=== PATIENT | female | born 1930 | race Caucasian/White ===

== ENCOUNTER 2017-07-19 10:22 | Emergency (ER) | payer MEDICARE ==
[2017-07-19 10:48] VITALS: BP 123/63
--- NOTE | 2017-07-19 11:19 | UC ---
Throat Pain/Nasal [place]lesia HPI - HPI Summary HPI Summary: Patient presents with complaints of two week onset, nasal congestion, sinus pressure, and thick yellow nasal discharge. She notes that is now is beginning to go to her chest with cough, and mild shortness of breath with exertion. She denies chest pain, abdominal pain, fever, chills, nausea, vomiting or diarrhea. - History of Current Complaint Chief Complaint: UCRespiratory Stated Complaint: SINUS CONGESTION Time Seen by Provider: 07/19/17 11:05 Hx Obtained From: Patient Onset/Duration: Gradual Onset, Lasting Weeks Severity: Moderate Cough: Nonproductive Associated Signs & Symptoms: Positive: Sinus Discomfort, Nasal Discharge - Epiglottits Risk Factors Epiglottis Risk Factors: Negative - Allergies/Home Medications Allergies/Adverse Reactions: Allergies Allergy/AdvReac Type Severity Reaction Status Date / Time No Known Allergies Allergy Verified 07/19/17 10:48 Home Medications: Home Medications Cranberry (Vaccinium Macrocarp [Cranberry] 2,500 mg PO BID 07/19/17 [History Confirmed 07/19/17] Glimepiride 0.5 tab PO DAILY 07/19/17 [History Confirmed 07/19/17] Glucosamine-Chondroitin [Glucosamine & Chondroitin 500-400 mg] 596 mg PO DAILY 07/19/17 [History Confirmed 07/19/17] Ipratropium [place] (Nasal) [Ipratropium [place]] 1 spray BOTH NARES DAILY 07/19 [History Confirmed 07/19/17] Magnesium 1 tab PO DAILY 07/19/17 [History Confirmed 07/19/17] Ubiquinone [Ultra Coq10] 100 mg PO BID 07/19/17 [History Confirmed 07/19/17] PMH/Surg Hx/FS Hx/Imm Hx Previously Healthy: Yes Endocrine History: Diabetes - Surgical History Surgical History: Yes Surgery Procedure, Year, and Place: Tonsillectomy. 1960 Tubal Ligation, [facility]. 1978 Partial Hysterectomy, [facility]. 2005 & 2006 L4 L5 HEMILAMENOTOMY x 2, [facility]. 2009 LEFT LEG [place]SE [place]IN [place] [facility] [place] - Family History Known Family History: Positive: Cardiac Disease - Social History Occupation: Retired Lives: Alone Alcohol Use: Rare Substance Use Type: None Smoking Status (MU): Never Smoked Tobacco - Immunization History Most Recent Influenza Vaccination: 04/2017 Most Recent Pneumonia Vaccination: 2014 Review of Systems Constitutional: Negative Skin: Negative Eyes: Negative ENT: Nasal Discharge, Sinus Congestion, Sinus Pain/Tenderness Respiratory: Negative Cardiovascular: Negative Gastrointestinal: Negative Genitourinary: Negative Motor: Negative Neurovascular: Negative Musculoskeletal: Negative All Other Systems Reviewed And Are Negative: Yes Physical Exam Triage Information Reviewed: Yes Appearance: Well-Appearing Vital Signs: Initial Vital Signs Temp 97.3 F 07/19/17 10:42 Pulse 83 07/19/17 10:42 Resp 20 07/19/17 10:42 BP 123/63 07/19/17 10:42 Pulse Ox 100 07/19/17 10:42 Vital Signs Reviewed: Yes Eye Exam: Normal ENT: Positive: Nasal congestion, Nasal drainage, Sinus tenderness Dental Exam: Normal Neck exam: Normal Neck: Positive: 1 Respiratory: Positive: Normal breath sounds, No respiratory distress, No accessory muscle use Cardiovascular: Positive: RRR, No Murmur, Pulses Normal Abdominal Exam: Normal Musculoskeletal Exam: Normal Neurological Exam: Normal Skin Exam: Normal Throat Pain/Nasal Course/Dx - Course Course Of Treatment: Patient presents with sinusitis, normal VS, no repiratory distress. Treated with zpk. Told to follow up if symtpoms persisit. - Differential Dx/Diagnosis Differential Diagnosis/HQI/PQRI: Sinusitis Provider Diagnoses: sinusitis Discharge - Discharge Plan Condition: Stable Disposition: HOME Prescriptions: Azithromycin TAB* [Zithromax TAB (Z-DIANN) 250 mg #6 tabs] 250 mg PO DAILY #6 tab Patient Education Materials: Sinusitis (ED) Referrals: Bandar Mccarthy MD [Primary Care Provider] -
== END 2017-07-19 11:17 | disposition home or self-care (01) ==
LOC: UCEAST 10:22
DX: J32.9 Chronic sinusitis, unspecified (principal); E11.9 Type 2 diabetes mellitus without complications; Z79.84 Long term (current) use of oral hypoglycemic drugs
CPT/HCPCS: 99212; G0463

== ENCOUNTER 2019-02-09 13:57 | Emergency (ER) | payer MEDICARE ==
--- OUTSIDE RECORDS SUMMARY | 2019-02-09 14:04 | XMS REPORT | Continuity of Care Document ---
:1930 External Reference #:[id number] Author Name Matt Vann Care Team Providers Name Role Phone Bandar Mccarthy III, MD Primary Care Physician Unavailable Payers Date Identification Numbers Payment Provider Subscriber Effective: 1996 Policy Number: [id number] Medicare Jocelyn Preston PayID: [id number] [address] [place] [address] Effective: 2010 Policy Number: [id number] [facility] [place] [facility] [place] Jocelyn Preston PayID: [id number] [address] [place] [address] Problems Active Problems Provider Date Type 2 diabetes mellitus Jennyfer Dominique N.P. Onset: 05/11/2011 Osteochondropathy Bandar Mccarthy M.D. Onset: 07/17/2011 Neck pain Bandar Mccarthy M.D. Onset: 05/01/2012 Lumbar post-laminectomy syndrome Todd Hinojosa M.D. Onset: 01/13/2014 Cervical spondylosis without myelopathy Todd Hinojosa M.D. Onset: 2013 Lumbosacral spondylosis without myelopathy Todd Hinojosa M.D. Onset: 01/2015 Cervical spondylosis with myelopathy Todd Hinojosa M.D. Onset: 01/05/2015 Localized, primary osteoarthritis Elvira Rooney M.D. Onset: 06/13/2015 Disorder of bone density and structure, Bandar Mccarthy M.D. Onset: 2014 unspecified Carpal tunnel syndrome Todd Hinojosa M.D. Onset: 11/09/2015 Lumbar spondylosis Bandar Mccarthy M.D. Onset: 12/05/2015 Chronic rhinitis Tyrone Robert M.D. Onset: 09/15/2018 Sensorineural hearing loss Tyrone Robert M.D. Onset: 09/15/2018 Snapping thumb syndrome Luis Manuel Castro MD Onset: 09/19/2018 Family History Date Family Member(s) Observation Comments General Heart Disease General Hypertension General Cancer Paternal Grandmother Hypertension Maternal Grandfather Heart Disease Maternal Grandmother Cancer Social History Type Date Description Comments Sex Unknown Marital Status Lives With Alone Occupation Retired Tobacco Use Start: Unknown Never Smoked Cigarettes Tobacco Use Start: Unknown Never Smoked Cigars Tobacco Use Start: Unknown Never Smoked A Pipe Smoking Status Reviewed: 01/30/19 Never Smoked A Pipe Smokeless Tobacco Never Used Smokeless Tobacco ETOH Use Rarely consumes alcohol Tobacco Use Start: Unknown Patient has never smoked Exercise Type/Frequency Exercises sporadically Exercise Type/Frequency exercycle on occ. Allergies, Adverse Reactions, Alerts Description No Known Drug Allergies Medications Active Medications SIG Qnty Indications Ordering Date Provider Guaifenesin-Codein 15 milliliters at 474ml Bandar Mcgowan 11/24/2018 e bedtime and can use Edinson Mccarthy 100-10mg/5ML every 6 hours as Solution needed for cough Glimepiride 1 po daily 90tabs E11.9 Bandar Mcgowan 11/19/2018 2mg Edinson Mccarthy Tablets Albuterol Sulfate 2 puffs by mouth four J20.9 Bandar Mcgowan 11/19/2018 HFA times a day as needed Edinson Mccarthy 108(90Base) mcg/Act Aerosol Trulicity inject 1 dose 6ml E11.9 Bandar Mcgowan 01/22/2018 subcutaneously once Edinson Mccarthy 1.5mg/0.5ML weekly Solution Pen-Inject Gabriela Contour use one strip to 100units E11.9 Bandar Mcgowan 07/25/2016 Blood Glucose Test check glucose once Edinson Mccarthy Strips daily Type 2diabetes Strips Ov 05/30 Premarin 1 application pv 2 x 42.500gm V72.31 James Weeks, 01/04/2015 weekly 0.625mg/GM Cream Gabriela Microlet every day as needed 50units Bandar Mcgowan 05/15/2013 Lancets dx code 250.00 RICHARD Mccarthy M.D. Misc type II Vitamin B Complex 1 PO qd Bandar Mcgowan 01/08/2008 Edinson Mccarthy Capsules Vitamin C 2 by mouth every day Unknown 500mg Capsules Lutein 1 cap daily Unknown 20mg Capsules Zeaxanthin 800mcg once daily Unknown Pill Bilberry one daily Unknown 60mg Capsules Glucosamine MSM 2 tabs daily Unknown Complex Tablets Borage Oil 1 cap daily Unknown 1000mg Capsules Vadim Taurine 1 cap daily Unknown 1000mg Capsules Vitamin D3 1 by mouth three Unknown times weekly 5000Unit Capsules Collagen daily Unknown Hydrolysate Powder Magnesium 1 by mouth every day Unknown 400mg Tablets Pomegranate 2 daily Unknown 250mg Capsules Qunol 2 caps daily Unknown Coq10/Ubiquinol/Me ga 100mg Capsules Fish Oil Burp-Less po bid 60caps Unknown 1200mg Capsules Fluocinonide-E apply to affected Unknown area bid prn 0.05% Cream Clobetasol topical to raise 50g Unknown Propionate areas scalp qd prn 0.05% Solution Calcium + D 2 PO qd Unknown 600/500mg Tablets Ambien by mouth every night 30tabs Bandar Mcgowan 5mg at bedtime as needed Edinson Mccarthy Tablets Multi-Vitamin 1 PO qd Bob Diamond, Tablets History Medications Tramadol HCL 1-2 tablets by 30tabs Luis Manuel Castro, 12/04/2018 - 50mg mouth every 6 MD 01/29/2019 Tablets hours as needed pain Azithromycin 2 today then 1 po 6tabs Cameron Leonard 11/27/2018 - 250mg qd x4 d Edinson Yepez,FACP 01/29/2019 Tablets Robitussin ac 3 tsp q6h prn Bandar Mcgowan 11/24/2018 - cough.Take with a Edinson Mccarthy 11/24/2018 full glass of water. Proair HFA 2 puffs by mouth 1units J20.9 Bandar Mcgowan 11/19/2018 - four times a day Edinson Mccarthy 11/19/2018 108(90Base) mcg/Act as needed Aerosol Fluticasone 2 sprays in each 1units J31.0 Tyrone 09/15/2018 - Propionate nostril once daily Edinson Robert 11/19/2018 50mcg/Act Suspension Clotrimazole/Betamet apply 2 - 3 times 15gm N77.1 Nora Leigh, 2017 - hasone Dipropionate daily as needed N.P. 08/18/2018 1-0.05% Cream Trulicity inject 0.75mg once 12units E11.9 Bandar Mcgowan 06/06/2017 - a week Edinson Mccarthy 01/22/2018 0.75mg/0.5ML Solution Pen-Inject Glimepiride take 2 tablets 120tabs E11.9 Bandar Mcgowan 09/06/2016 - 1mg daily Edinson Mccarthy 11/19/2018 Tablets Pioglitazone HCL 1 by mouth every 90tabs Bandar Mcgowan 07/25/2016 - 30mg day Edinson Mccarthy 10/10/2017 Tablets Amoxicillin/Clavulan 1 by mouth twice a 10tabs J06.9 Bandar Mcgowan 07/19/2016 - ate Potassium day Edinson Mccarthy 07/25/2016 500-125mg Tablets Januvia 1 by mouth every 90tabs E11.9 Bandar Mcgowan 06/11/2016 - 100mg Tablets day Edinson Mccarthy 06/06/2017 Mobic No Longer Using 30tabs Jannette 03/21/2016 - 7.5mg Tablets Edinson Willard 09/06/2016 Ultracet 1-2 tabs by mouth 30tabs Jannette 11/24/2015 - 37.5-325mg every 4-6 hours as Edinson Willard 04/11/2016 Tablets needed pain Magnesium 1 by mouth every Bandar EColton 10/18/2015 - 400mg day Edinson Mccarthy 07/19/2016 Capsules Voltaren apply twice a day 1tube Anibal Noy, 06/23/2015 - 1% Gel as needed to M.D. 10/05/2015 affected area Naproxen 1 tablet with food 60tabs M17.11 Elvira Rooney, 06/13/2015 - 500mg by mouth twice a M.DColton 09/15/2018 Tablets day Alendronate Sodium 1 tablet once 12tabs Bandar Mcgowan 01/14/2015 - weekly (on hold Edinson Mccarthy 10/05/2015 35mg Tablets per pt) Fluticasone 2 sprays each 16gm 381.01 Pierre Jaquez NP 01/05/2015 - Propionate nostril every day 01/19/2015 50mcg/Act for 1 week, then 1 Suspension spray each nostril for 1 week. Pioglitazone HCL 1 by mouth every 90tabs Bandar Mcgowan 12/01/2014 - 15mg day Edinson Mccarthy 07/25/2016 Tablets Welchol 3 po bid 180tabs Bandar Mcgowan 08/19/2013 - 625mg Tablets Edinson Mccarthy 11/30/2014 Gabriela Contour Blood test once daily 50units E11.9 Bandar Mcgowan 05/15/2013 - Glucose Test Strips Edinson Mccarthy 07/25/2016 Strips Flexeril 1 po tid prn 30tabs Bandar Mcgowan 12/20/2011 - 10mg Tablets Edinson Mccarthy 05/12/2012 Fish Oil 1 po qd Bandar Mcgowan 07/17/2011 - 1200mg Edinson Mccarthy 08/12/2012 Capsules Cinnamon 1 po tid Bandar Mcgowan 07/17/2011 - 500mg Edinson Mccarthy 03/24/2018 Capsules Janumet Take One Tablet By 180tabs E11Colton9 Bandar Mcgowan 06/18/2011 - 50-1000mg Mouth Twice Daily Edinson Mccarthy 06/11/2016 Tablets Januvia 1 po qd Bandar Mcgowan 06/04/2011 - 100mg Tablets Edinson Mccarthy 06/18/2011 Fosamax one tablet weekly 12tabs Bandar Mcgowan 03/07/2011 - 35mg Tablets Edinson Mccarthy 01/14/2015 Premarin 2 x week 42.5gm Bandar Mcgowan 10/10/2010 - 0.625mg/GM Edinson Mccarthy 05/01/2012 Cream Ciprofloxacin HCL 1 po bid 14tabs Bandar Mcgowan 10/10/2010 - Edinson Mccarthy 02/14/2011 500mg Tablets Aleve prn Unknown 11/15/2009 - 220mg Tablets 05/01/2012 Vitamin D 1 po qd 60caps Bandar Mcgowan 04/25/2009 - 400Unit Edinson Mccarthy 09/14/2018 Capsules Cipro 1 po bid 20tabs Bandar Mcgowan 02/28/2009 - 500mg Tablets Edinson Mccarthy 04/25/2009 Actos 1 po qd 90tabs Bandar Mcgowan 10/18/2008 - 45mg Tablets Edinson Mccarthy 06/18/2011 Cranberry Bandar Mcgowan 01/08/2008 - Concentrate Edinson Mccarthy 02/10/2013 Capsules Cipro 1 PO bid 20tabs Bandar Mcgowan 12/09/2007 - 500mg Tablets Edinson Mccarthy 01/08/2008 Septra DS 1 po bid 20tabs Bandar Mcgowan 12/04/2007 - 800-160 Edinson Mccarthy 01/08/2008 Tablets Zithromax Z-Ousmane as per directions 1Pmaria guadalupe Mcgowan 08/22/2007 - 250mg Edinson Mccarthy 01/08/2008 Tablets Nasacort Aq use 1 spray ea 1unjoel Mcgowan 08/22/2007 - 55mcg/Act nostril qhs prn Edinson Mccarthy 01/08/2008 Aerosol Glucosamine 1500 Unknown - Complex 05/29/2018 1500Com Capsules Turmeric 1 po qd Unknown - 800mg Cap 05/29/2016 Milk Thistle 1 po qd Unknown - 1000mg 05/10/2016 Capsules Actos 1 by mouth every Unknown - 15mg Tablets day 11/08/2015 Avocado Soy Unknown - 05/29/2018 Ipratropium [place] instill 2 sprays Unknown - in each nostril 07/19/2016 0.03% Solution twice a day Mucinex 1 tab twice a day Unknown - 600mg Tablets by mouth as needed 06/05/2017 ER 12HR Tylenol Cold Max prn Unknown - 06/05/2017 10-5-325mg Tablets Robitussin 12 Hour prn Unknown - Cough Relief 06/05/2017 30mg/5ML Suer Melatonin ER 1 by mouth every Unknown - 5mg night at bedtime 01/21/2018 Tablets ER Magnesium-Oxide take one Unknown - capsule/tablet 09/08/2018 400(241.3mg) mg daily by mouth Tablets Ipratropium [place] instill 2 sprays Unknown - in each nostril 01/21/2018 0.03% Solution twice a day Vitamin E 1 by mouth every Unknown - 400Unit day 05/29/2018 Capsules Zinc 1 daily for 1 Unknown - 75mg Tablets month 05/29/2018 Copper Unknown - 2mg Tablets 05/29/2018 Turmeric take one Unknown - 500mg capsule/tablet 09/08/2018 Capsules daily by mouth Advil 2 PO bid Bob Diamond, - 200mg Tablets MD 11/15/2009 Actos 1 PO qd 100tabs Bandar E. - 30mg Tablets Edinson Mccarthy 10/18/2008 Glucophage XR 2 po bid 360tabs Bandar E. - 500mg Edinson Mccarthy 07/17/2011 Tablets ER 24HR Fosamax one tablet weekly 12tabs Bandar E. - 35mg. Tablets Edinson Mccarthy 03/07/2011 Acidophilus qd Other Physician - Tablets Practices 04/09/2007 Premarin Cream 2 x week Bandar E. - 1.0mg. Edinson Mccarthy 10/10/2010 Cream Lipoflavonoid 1 PO tid Unknown - 05/01/2012 Tablets L-Lysine 1 X daily Unknown - 500mg 09/15/2018 Capsules Restasis one gtts ou bid 2trays Unknown - 0.05% 07/19/2016 Emulsion Advil 2 tablets every 6 Unknown - 200mg Tablets hrs prn 08/04/2015 Hydrocodone 1 at hs 60tabs Unknown - Bitartrate/Apap 05/01/2012 325mg Tablets Macrobid 1 tab po bid x 10 14caps Unknown - 100mg days 02/10/2013 Capsules Premarin 1 application pv 2 42.500gm Unknown - 0.625mg/GM x weekly 11/30/2014 Cream Glucosamine & daily Unknown - Chrondroitin & MSM 07/07/2015 And Others 1050mg Packet SMZ-TMP DS 1 po qd 20tabs Unknown - 400-80 08/19/2013 Tablets Ceftin po qd 14tabs Unknown - 250mg Tablets 05/31/2014 Ibuprofen 1 by mouth three Unknown - 600mg times a day as 11/27/2018 Tablets needed Medications Administered in Office Medication SIG Qnty Indications Ordering Provider Date Celestone 3 mg and 3mg Luis Manuel Castro MD 09/19/2018 Injection Td(Adult),Unspecified Unknown 04/01/2018 Injection Influenza,Unspecified Unknown 04/01/2018 Injection Depomedrol 80MG Elvira Rooney M.D. 06/13/2015 Injection Influenza Virus Vaccine Unknown 05/03/2015 Injection Influenza Virus Vaccine Unknown 05/29/2014 Injection Immunizations CPT Code Status Date Vaccine Lot # [id number] Given 05/11/2017 Influenza Virus Vaccine, Quadrivalent, Split, Preservative Free 49338 Given 05/30/2016 Influenza Virus Vaccine, Quadrivalent, Split, [id number] Preservative Free 04514 Given 11/30/2014 Pneumococcal Conjugate Vaccine 13 Valent For [id number] Intramuscular Use Q2037 Given 05/29/2014 Fluvirin Im 3Yrs And Older Q2038 Given 05/01/2012 Fluzone Vaccine [id number] Q2038 Given 05/11/2011 Fluzone Vaccine [id number] 99077 Given 10/18/2008 Tetanus And Diptheria (Td) For Adult Use [id number] Preservative Free 82578 Given 07/15/2007 Zoster (Zostavax) 89906 Given 07/15/2007 Zoster (Zostavax) [id number] 42470 Given 06/19/2007 Influenza Virus 3Yrs & Over 03868 Given 06/19/2007 Influenza Virus 3Yrs & Over 02233 Given 06/19/2007 Influenza Virus 3Yrs & Over [id number] 99730 Given 04/09/2007 Pneumonia Vaccine [id number] 64178 Given 04/09/2007 Pneumonia Vaccine 92768 Given 04/09/1998 Pneumovax (History By Patient) Vital Signs Date Vital Result Comment 01/30/2019 10:36am Height 64 inches 5'4" Weight 130.00 lb Heart Rate 82 /min BP Systolic Sitting 108 mmHg BP Diastolic Sitting 60 mmHg Respiratory Rate 14 /min Pain Level 2 BMI (Body Mass Index) 22.3 kg/m2 12/12/2018 2:06pm Height 64 inches 5'4" Weight 130.00 lb Heart Rate 90 /min BP Systolic Sitting 116 mmHg BP Diastolic Sitting 62 mmHg Body Temperature 99.9 F Pain Level 1 BMI (Body Mass Index) 22.3 kg/m2 11/27/2018 4:00pm Height 64 inches 5'4" Weight 130.25 lb Heart Rate 103 /min BP Systolic 121 mmHg BP Diastolic 69 mmHg Body Temperature 98.2 F O2 % BldC Oximetry 96 % BMI (Body Mass Index) 22.4 kg/m2 11/21/2018 11:13am Height 64 inches 5'4" Weight 133.00 lb BP Systolic Sitting 122 mmHg BP Diastolic Sitting 68 mmHg Respiratory Rate 16 /min Pain Level 0 BMI (Body Mass Index) 22.8 kg/m2 11/19/2018 10:05am Height 64 inches 5'4" Weight 133.00 lb Heart Rate 84 /min BP Systolic Sitting 118 mmHg BP Diastolic Sitting 62 mmHg Body Temperature 97.9 F O2 % BldC Oximetry 97 % BMI (Body Mass Index) 22.8 kg/m2 10/07/2018 4:06pm Height 64 inches 5'4" Weight 133.00 lb Heart Rate 65 /min BP Systolic Sitting 140 mmHg BP Diastolic Sitting 76 mmHg O2 % BldC Oximetry 97 % BMI (Body Mass Index) 22.8 kg/m2 09/19/2018 10:45am Height 64 inches 5'4" Weight 132.12 lb Heart Rate 82 /min BP Systolic Sitting 122 mmHg R BP Diastolic Sitting 58 mmHg R Respiratory Rate 16 /min Pain Level 1 O2 % BldC Oximetry 98 % BMI (Body Mass Index) 22.7 kg/m2 09/15/2018 1:47pm Height 64 inches 5'4" Weight 131.00 lb Heart Rate 78 /min BP Systolic Sitting 116 mmHg BP Diastolic Sitting 60 mmHg Respiratory Rate 18 /min Pain Level 0 BMI (Body Mass Index) 22.5 kg/m2 09/10/2018 11:40am Height 64 inches 5'4" Weight 131.00 lb Heart Rate 89 /min BP Systolic Sitting 120 mmHg BP Diastolic Sitting 70 mmHg O2 % BldC Oximetry 97 % BMI (Body Mass Index) 22.5 kg/m2 08/11/2018 3:30pm Height 64 inches 5'4" Weight 132.50 lb Heart Rate 96 /min BP Systolic 132 mmHg BP Diastolic 60 mmHg Body Temperature 96.7 F O2 % BldC Oximetry 97 % BMI (Body Mass Index) 22.7 kg/m2 05/30/2018 11:02am Height 64 inches 5'4" Weight 129.00 lb Heart Rate 83 /min BP Systolic Sitting 100 mmHg BP Diastolic Sitting 62 mmHg O2 % BldC Oximetry 96 % BMI (Body Mass Index) 22.1 kg/m2 03/25/2018 10:08am Height 64 inches 5'4" Weight 134.00 lb Heart Rate 70 /min BP Systolic Sitting 100 mmHg BP Diastolic Sitting 58 mmHg O2 % BldC Oximetry 96 % BMI (Body Mass Index) 23.0 kg/m2 01/22/2018 2:38pm Height 64 inches 5'4" Weight 135.00 lb Heart Rate 64 /min BP Systolic Sitting 118 mmHg BP Diastolic Sitting 70 mmHg O2 % BldC Oximetry 97 % BMI (Body Mass Index) 23.2 kg/m2 12/31/2017 2:03pm Height 64 inches 5'4" Weight 135.00 lb Heart Rate 95 /min BP Systolic 123 mmHg BP Diastolic 62 mmHg Body Temperature 97.7 F O2 % BldC Oximetry 95 % BMI (Body Mass Index) 23.2 kg/m2 10/10/2017 10:20am Weight 139.00 lb Heart Rate 89 /min BP Systolic Sitting 118 mmHg BP Diastolic Sitting 58 mmHg O2 % BldC Oximetry 96 % 09/11/2017 3:01pm Weight 143.00 lb Heart Rate 93 /min BP Systolic Sitting 118 mmHg BP Diastolic Sitting 58 mmHg Body Temperature 98.4 F O2 % BldC Oximetry 95 % 06/06/2017 9:03am Height 64 inches 5'4" Weight 139.00 lb Heart Rate 68 /min BP Systolic Sitting 104 mmHg BP Diastolic Sitting 50 mmHg Body Temperature 97.5 F O2 % BldC Oximetry 97 % BMI (Body Mass Index) 23.9 kg/m2 12/05/2016 11:46am Weight 137.00 lb Heart Rate 56 /min BP Systolic Sitting 118 mmHg BP Diastolic Sitting 70 mmHg Respiratory Rate 15 /min Body Temperature 98.0 F O2 % BldC Oximetry 97 % 09/06/2016 9:12am Weight 127.00 lb Heart Rate 73 /min BP Systolic Sitting 108 mmHg BP Diastolic Sitting 54 mmHg Body Temperature 97.5 F O2 % BldC Oximetry 97 % 08/29/2016 11:24am Height 64 inches 5'4" Weight 125.00 lb Body Temperature 97.0 F Pain Level 0 BMI (Body Mass Index) 21.5 kg/m2 07/25/2016 3:35pm Weight 125.00 lb Heart Rate 101 /min BP Systolic Sitting 116 mmHg BP Diastolic Sitting 68 mmHg Body Temperature 97.6 F O2 % BldC Oximetry 99 % 07/19/2016 2:59pm Weight 126.00 lb Heart Rate 93 /min BP Systolic Sitting 124 mmHg BP Diastolic Sitting 52 mmHg Body Temperature 98.2 F O2 % BldC Oximetry 96 % 06/20/2016 8:26am Height 64 inches 5'4" Weight 125.00 lb Pain Level 0 BMI (Body Mass Index) 21.5 kg/m2 05/30/2016 11:46am Weight 125.25 lb Heart Rate 77 /min BP Systolic Sitting 118 mmHg BP Diastolic Sitting 70 mmHg Body Temperature 97.8 F O2 % BldC Oximetry 98 % 04/12/2016 11:14am Height 64 inches 5'4" Weight 124.00 lb Respiratory Rate 16 /min Pain Level 0 BMI (Body Mass Index) 21.3 kg/m2 03/21/2016 10:00am Height 64 inches 5'4" Weight 124.00 lb Pain Level 5 BMI (Body Mass Index) 21.3 kg/m2 01/04/2016 1:55pm Height 64 inches 5'4" Weight 124.00 lb Pain Level 3 BMI (Body Mass Index) 21.3 kg/m2 12/19/2015 2:37pm Height 64 inches 5'4" Weight 124.00 lb Pain Level 2 BMI (Body Mass Index) 21.3 kg/m2 12/12/2015 8:27am Height 64 inches 5'4" Weight 124.00 lb Body Temperature 96.0 F Pain Level 5 BMI (Body Mass Index) 21.3 kg/m2 12/05/2015 10:10am Height 64 inches 5'4" Weight 128.00 lb Heart Rate 94 /min BP Systolic 133 mmHg BP Diastolic 66 mmHg Body Temperature 97.7 F O2 % BldC Oximetry 98 % BMI (Body Mass Index) 22.0 kg/m2 11/24/2015 3:08pm Height 64 inches 5'4" Weight 128.00 lb Heart Rate 64 /min BP Systolic Sitting 118 mmHg BP Diastolic Sitting 64 mmHg Respiratory Rate 16 /min BMI (Body Mass Index) 22.0 kg/m2 11/23/2015 2:09pm Height 64 inches 5'4" Weight 128.00 lb Heart Rate 74 /min BP Systolic Sitting 122 mmHg BP Diastolic Sitting 82 mmHg BMI (Body Mass Index) 22.0 kg/m2 11/09/2015 1:19pm Height 64 inches 5'4" Weight 129.00 lb Heart Rate 80 /min BP Systolic Sitting 118 mmHg BP Diastolic Sitting 64 mmHg Pain Level 0 no pain at this time. BMI (Body Mass Index) 22.1 kg/m2 10/05/2015 2:42pm Height 64 inches 5'4" Weight 131.00 lb Heart Rate 84 /min BP Systolic 110 mmHg BP Diastolic 68 mmHg Body Temperature 98.3 F O2 % BldC Oximetry 98 % BMI (Body Mass Index) 22.5 kg/m2 08/04/2015 9:40am Weight 129.00 lb Heart Rate 95 /min BP Systolic Sitting 112 mmHg BP Diastolic Sitting 62 mmHg Body Temperature 98.1 F 07/06/2015 2:50pm Height 64 inches 5'4" Weight 127.00 lb Pain Level 8 BMI (Body Mass Index) 21.8 kg/m2 06/13/2015 1:34pm Height 64 inches 5'4" Weight 127.00 lb Heart Rate 81 /min BP Systolic 120 mmHg BP Diastolic 71 mmHg BMI (Body Mass Index) 21.8 kg/m2 03/01/2015 9:44am Height 64 inches 5'4" Weight 121.00 lb Heart Rate 83 /min BP Systolic Sitting 102 mmHg BP Diastolic Sitting 60 mmHg O2 % BldC Oximetry 97 % BMI (Body Mass Index) 20.8 kg/m2 01/05/2015 3:16pm Weight 122.00 lb Heart Rate 100 /min BP Systolic Sitting 116 mmHg BP Diastolic Sitting 62 mmHg Body Temperature 97.2 F 01/05/2015 10:05am Height 64 inches 5'4" Weight 122.00 lb Heart Rate 84 /min BP Systolic Sitting 108 mmHg BP Diastolic Sitting 66 mmHg Pain Level 5 not constant BMI (Body Mass Index) 20.9 kg/m2 01/04/2015 1:08pm Weight 122.00 lb Heart Rate 99 /min BP Systolic Sitting 130 mmHg BP Diastolic Sitting 66 mmHg Body Temperature 96.4 F 11/30/2014 9:39am Height 64 inches 5'4" Weight 125.00 lb Heart Rate 89 /min BP Systolic Sitting 112 mmHg BP Diastolic Sitting 64 mmHg Respiratory Rate 14 /min Body Temperature 97.4 F O2 % BldC Oximetry 95 % BMI (Body Mass Index) 21.5 kg/m2 10/18/2014 2:31pm Height 64 inches 5'4" Weight 127.00 lb Heart Rate 68 /min BP Systolic 130 mmHg BP Diastolic 72 mmHg BMI (Body Mass Index) 21.8 kg/m2 05/31/2014 11:00am Weight 124.50 lb Heart Rate 92 /min BP Systolic Sitting 108 mmHg BP Diastolic Sitting 58 mmHg Body Temperature 98.2 F 11/17/2013 9:29am Height 64 inches 5'4" Weight 125.00 lb Heart Rate 88 /min BP Systolic Standing 126 mmHg BP Diastolic Standing 58 mmHg Body Temperature 98.3 F BMI (Body Mass Index) 21.5 kg/m2 08/19/2013 10:59am Height 63.5 inches 5'3.50" Weight 126.50 lb Heart Rate 88 /min BP Systolic Sitting 122 mmHg BP Diastolic Sitting 66 mmHg BMI (Body Mass Index) 22.1 kg/m2 02/10/2013 1:57pm Weight 125.00 lb Heart Rate 76 /min BP Systolic Sitting 134 mmHg BP Diastolic Sitting 60 mmHg 08/12/2012 10:08am Height 64.25 inches 5'4.25" Weight 126.00 lb Heart Rate 88 /min BP Systolic Sitting 120 mmHg BP Diastolic Sitting 68 mmHg BMI (Body Mass Index) 21.5 kg/m2 05/12/2012 10:54am Height 63.5 inches 5'3.50" Weight 127.00 lb Heart Rate 80 /min BP Systolic Sitting 120 mmHg BP Diastolic Sitting 58 mmHg BMI (Body Mass Index) 22.1 kg/m2 05/01/2012 3:07pm Height 63.5 inches 5'3.50" Weight 128.00 lb Heart Rate 66 /min BP Systolic Sitting 118 mmHg BP Diastolic Sitting 70 mmHg BMI (Body Mass Index) 22.3 kg/m2 10/29/2011 9:59am Height 63.5 inches 5'3.50" Weight 133.50 lb Heart Rate 100 /min BP Systolic Sitting 140 mmHg BP Diastolic Sitting 68 mmHg BMI (Body Mass Index) 23.3 kg/m2 07/17/2011 2:15pm Height 64.25 inches 5'4.25" Weight 135.50 lb Heart Rate 80 /min BP Systolic Sitting 118 mmHg BP Diastolic Sitting 64 mmHg BMI (Body Mass Index) 23.1 kg/m2 05/11/2011 2:53pm Height 66.5 inches 5'6.50" Weight 138.00 lb BP Systolic Sitting 130 mmHg BP Diastolic Sitting 65 mmHg BMI (Body Mass Index) 21.9 kg/m2 04/27/2011 10:57am Weight 135.00 lb Heart Rate 100 /min BP Systolic Sitting 130 mmHg BP Diastolic Sitting 58 mmHg 03/19/2011 3:28pm Weight 139.00 lb Heart Rate 78 /min BP Systolic Sitting 112 mmHg BP Diastolic Sitting 68 mmHg Respiratory Rate 18 /min 10/10/2010 2:45pm Weight 137.00 lb Heart Rate 78 /min BP Systolic Sitting 140 mmHg BP Diastolic Sitting 64 mmHg O2 % BldC Oximetry 97 % 11/15/2009 2:15pm Weight 135.00 lb Heart Rate 76 /min BP Systolic Sitting 114 mmHg BP Diastolic Sitting 56 mmHg 04/25/2009 11:18am Weight 133.00 lb Heart Rate 68 /min BP Systolic Sitting 90 mmHg BP Diastolic Sitting 52 mmHg 02/28/2009 9:55am Heart Rate 60 /min BP Systolic Sitting 110 mmHg BP Diastolic Sitting 68 mmHg 10/18/2008 10:33am Weight 132.00 lb Heart Rate 76 /min BP Systolic Sitting 112 mmHg BP Diastolic Sitting 68 mmHg 04/14/2008 10:38am Height 64.5 inches 5'4.50" Weight 135.00 lb Heart Rate 64 /min BP Systolic Sitting 96 mmHg BP Diastolic Sitting 58 mmHg BMI (Body Mass Index) 22.8 kg/m2 01/08/2008 2:53pm Height 64.5 inches 5'4.50" Weight 136.00 lb Heart Rate 84 /min BP Systolic Sitting 124 mmHg BP Diastolic Sitting 64 mmHg BMI (Body Mass Index) 23.0 kg/m2 10/15/2007 10:35am Height 64.5 inches 5'4.50" Weight 140.00 lb Heart Rate 72 /min BP Systolic Sitting 120 mmHg BP Diastolic Sitting 70 mmHg BMI (Body Mass Index) 23.7 kg/m2 08/22/2007 9:26am Height 64.5 inches 5'4.50" Weight 140.00 lb Heart Rate 80 /min BP Systolic Sitting 118 mmHg BP Diastolic Sitting 70 mmHg Body Temperature 98.4 F BMI (Body Mass Index) 23.7 kg/m2 04/09/2007 10:52am Height 64.5 inches 5'4.50" Weight 134.00 lb Heart Rate 64 /min BP Systolic Sitting 130 mmHg BP Diastolic Sitting 70 mmHg BMI (Body Mass Index) 22.6 kg/m2 Results Test Date Facility Test Result H/L Range Note Laboratory test 12/04/2018 [facility] SEE RESULT 1 , [address] [place] [address] [phone] Laboratory test 11/19/2018 [facility] Hemoglobin A1c 7.3 High 5-7 finding Comp Metabolic 09/19/2018 [facility] Sodium 139 mmol/L N 135- [address] [place] [address] [phone] Potassium 4.4 mmol/L N 3.5-5.0 Chloride 103 mmol/L N 101-111 Co2 Carbon Dioxide 30 mmol/L N 22-32 Anion Gap 6 mmol/L N 2-11 Glucose 131 mg/dL High 70-100 Blood Urea Nitrogen 24 mg/dL N 6-24 Creatinine 0.79 mg/dL N 0.51-0.95 BUN/Creatinine Ratio 30.4 High 8-20 Calcium 9.7 mg/dL N 8.6-10.3 Total Protein 6.8 g/dL N 6.4-8.9 Albumin 3.9 g/dL N 3.2-5.2 Globulin 2.9 g/dL N 2-4 Albumin/Globulin Ratio 1.3 N 1-3 Total Bilirubin 0.80 mg/dL N 0.2-1.0 Alkaline Phosphatase 77 U/L N 34-104 Alt 28 U/L N 7-52 Ast 33 U/L N 13-39 Egfr Non- 69.0 >60 Egfr 83.5 >60 3 Lipid Profile 09/19/2018 [facility] Triglycerides 88 mg/dL 4 (Trig/Chol/HDL) [address] [place] [address] [phone] Cholesterol 162 mg/dL 5 HDL Cholesterol 50.2 mg/dL 6 LDL Cholesterol 94 mg/dL 7 Laboratory test 09/19/2018 [facility] Vitamin D Total 51.7 High 20-[address] 25(Oh) ng/[place] [address] [phone] Urine 09/10/2018 [facility] Ur Microalbumin 19.[address] (mg/L) [place] [address] [phone] Urine Creatinine 54.11 mg/dL Urine Microalbumin/Creatinine 35.1 High <31 Laboratory test 09/10/2018 [facility] Hemoglobin A1c 7.7 High 5-7 finding Laboratory test 08/11/2018 [facility] Gardnerella/Yeast SEE RESULT 9, [address] : [place] [address] [phone] Laboratory test 05/30/2018 [facility] Hemoglobin A1c 7.6 High 5-7 finding Laboratory test 01/22/2018 [facility] Hemoglobin A1c 8.2 High 5-7 finding Laboratory test 09/11/2017 [facility] Hemoglobin A1c 7.6 High 5-7 finding Urine Microalbumin 07/20/2017 [facility] Ur Microalbumin 31.0 mg /L Random [address] (mg/L) [place] [address] [phone] Urine Creatinine 53.03 mg/dL Urine Microalbumin/Creatinine 58.4 ug/mg High <31 Comp Metabolic Panel 07/19/2017 [facility] Sodium 138 mmol/L N 133-[address] [place] [address] [phone] Potassium 4.0 mmol/L N 3.5-5.0 Chloride 105 mmol/L N 101-111 Co2 Carbon Dioxide 29 mmol/L N 22-32 Anion Gap 4 mmol/L N 2-11 Glucose 135 mg/dL High 70-100 Blood Urea Nitrogen 26 mg/dL High 6-24 Creatinine 0.84 mg/dL N 0.51-0.95 BUN/Creatinine Ratio 31.0 High 8-20 Calcium 9.8 mg/dL N 8.6-10.3 Total Protein 6.6 g/dL N 6.4-8.9 Albumin 3.6 g/dL N 3.2-5.2 Globulin 3.0 g/dL N 2-4 Albumin/Globulin Ratio 1.2 N 1-3 Total Bilirubin 0.40 mg/dL N 0.2-1.0 Alkaline Phosphatase 78 U/L N 34-104 Alt 26 U/L N 7-52 Ast 35 U/L N 13-39 Egfr Non- 64.4 >60 Egfr 82.9 >60 11 Lipid Profile 07/19/2017 [facility] Triglycerides 57 mg/dL 12 (Trig/Chol/HDL) [address] [place] [address] [phone] Cholesterol 142 mg/dL 13 HDL Cholesterol 42.2 mg/dL 14 LDL Cholesterol 88 mg/dL 15 Laboratory test 06/06/2017 [facility] Hemoglobin A1c 7.2 High 5-7 finding Laboratory test 12/05/2016 [facility] Hemoglobin A1c 7.0 5-7 finding Laboratory test 09/06/2016 [facility] Hemoglobin A1c 9.1 High 5-7 finding Basic Metabolic 08/23/2016 [facility] Sodium 136 mmol/L N 133- 145 Panel [address] [place] [address] [phone] Potassium 4.9 mmol/L N 3.5-5.0 Chloride 101 mmol/L N 101-111 Co2 Carbon Dioxide 29 mmol/L N 22-32 Anion Gap 6 mmol/L N 2-11 Glucose 196 mg/dL High 70-100 Blood Urea Nitrogen 30 mg/dL High 6-24 Creatinine 0.82 mg/dL N 0.51-0.95 BUN/Creatinine Ratio 36.6 High 8-20 Calcium 9.7 mg/dL N 8.6-10.3 Egfr Non- 66.4 N >60 Egfr 85.4 N >60 16 Laboratory test 08/23/2016 [facility] C-Peptide 2.1 ng/mL N 1.1 - 4.4 [address] [place] [address] [phone] Basic Metabolic 07/20/2016 [facility] Sodium 136 mmol/L N 133- [address] [place] [address] [phone] Potassium 4.7 mmol/L N 3.5-5.0 Chloride 103 mmol/L N 101-111 Co2 Carbon Dioxide 30 mmol/L N 22-32 Anion Gap 3 mmol/L N 2-11 Glucose 202 mg/dL High 70-100 Blood Urea Nitrogen 18 mg/dL N 6-24 Creatinine 0.75 mg/dL N 0.51-0.95 BUN/Creatinine Ratio 24.0 High 8-20 Calcium 9.1 mg/dL N 8.6-10.3 Egfr Non- 73.6 N >60 Egfr 94.7 N >60 18 Laboratory test 07/20/2016 [facility] Hemoglobin A1c 9.1 % High Less than [address] (Glyco HGB) 6.0 [place] [address] [phone] Laboratory test 05/17/2016 [facility] Hemoglobin A1c 7.4 % High Less than [address] (Glyco HGB) 6.0 [place] [address] [phone] Arthritis Panel 03/21/2016 [facility] Uric Acid 3.0 N 2.3-6.[address] mg/[place] [address] [phone] Erythrocyte Sed Rate 29 mm/Hr N 0-40 Rheumatoid Factor <15 IU/mL N <15 21 Anti-Nuclear Antibody 0.2 U N 22 Cyclic Citrullinated Peptide <15.6 U N 23 Interpretation See Comment N 24 Urine Microalbumin 02/15/2016 [facility] Ur Microalbumin < 5.0 mg/L N Random [address] (mg/L) [place] [address] [phone] Urine Creatinine 35.53 mg/dL N Urine Microalbumin/Creatinine TNP ug/mg N <31 25 Laboratory test 02/15/2016 [facility] Hemoglobin A1c 7.7 % High Less [address] (Glyco HGB) than 6.0 [place] [address] [phone] Lipid Profile 02/15/2016 [facility] Triglycerides 74 N 27 (Trig/Chol/HDL) mg/[place] [address] [phone] Cholesterol 160 mg/dL N 28 HDL Cholesterol 47.6 mg/dL N 29 LDL Cholesterol 98 mg/dL N 30 Basic Metabolic Panel 02/15/2016 [facility] Sodium 135 mmol/L N 133-145 [address] [place] [address] [phone] Potassium 4.7 mmol/L N 3.5-5.0 Chloride 100 mmol/L Low 101-111 Co2 Carbon Dioxide 29 mmol/L N 22-32 Anion Gap 6 mmol/L N 2-11 Glucose 147 mg/dL High 70-100 Blood Urea Nitrogen 21 mg/dL N 6-24 Creatinine 0.78 mg/dL N 0.51-0.95 BUN/Creatinine Ratio 26.9 High 8-20 Calcium 9.9 mg/dL N 8.6-10.3 Egfr Non- 70.4 N >60 Egfr 90.5 N >60 31 Laboratory test 02/15/2016 [facility] Magnesium 1.5 mg/dL Low 1.9-2.7 32 finding [address] [place] [address] [phone] Laboratory test 11/29/2015 [facility] Point of Care 167 mg/dL High 74-106 33 finding [facility] [place] [address] [phone] Laboratory test 10/05/2015 [facility] Magnesium 1.5 mg/dL Low 1.9-2.[address] [place] [address] [phone] TSH (Thyroid Stim Horm) 1.46 ?IU/mL N 0.34-5.60 Comp Metabolic Panel 10/05/2015 [facility] Sodium 138 mmol/L N 133-145 [address] [place] [address] [phone] Potassium 4.3 mmol/L N 3.5-5.0 Chloride 101 mmol/L N 101-111 Co2 Carbon Dioxide 30 mmol/L N 22-32 Anion Gap 7 mmol/L N 2-11 Glucose 152 mg/dL High 70-100 Blood Urea Nitrogen 21 mg/dL N 6-24 Creatinine 0.71 mg/dL N 0.51-0.95 BUN/Creatinine Ratio 29.6 High 8-20 Calcium 9.7 mg/dL N 8.6-10.3 Total Protein 6.7 g/dL N 6.4-8.9 Albumin 4.1 g/dL N 3.2-5.2 Globulin 2.6 g/dL N 2-4 Albumin/Globulin Ratio 1.6 N 1-3 Total Bilirubin 0.40 mg/dL N 0.2-1.0 Alkaline Phosphatase 56 U/L N 34-104 Alt 19 U/L N 7-52 Ast 27 U/L N 13-39 Egfr Non- 78.6 N >60 Egfr 101.1 N >60 34 Laboratory test 08/04/2015 [facility] Hemoglobin A1c 6.9 5-7 finding Laboratory test 03/01/2015 [facility] Hemoglobin A1c 7.0 5-7 finding Basic Metabolic 02/23/2015 [facility] Sodium 135 mmol/L N 133- 145 Panel [address] [place] [address] [phone] Potassium 5.0 mmol/L N 3.5-5.0 Chloride 102 mmol/L N 101-111 Co2 Carbon Dioxide 28 mmol/L N 22-32 Anion Gap 5 mmol/L N 2-11 Glucose 146 mg/dL High 70-100 Blood Urea Nitrogen 20 mg/dL N 6-24 Creatinine 0.75 mg/dL N 0.51-0.95 BUN/Creatinine Ratio 26.7 High 8-20 Calcium 9.0 mg/dL N 8.6-10.3 Egfr Non- 73.8 N >60 Egfr 94.9 N >60 35 Urine Culture And 11/30/2014 [facility] Urine Culture (SEE NOTE ) 36 Sensitivities [address] [place] [address] [phone] Urinalysis Profile 11/30/2014 [facility] Urine Color Yellow N [address] [place] [address] [phone] Urine Appearance Cloudy N Urine Specific [place] 1.011 N 1.010-1.030 Urine pH 5.0 N 5-9 Urine Urobilinogen Negative N Negative Urine Ketones Negative N Negative Urine Protein Negative N Negative Urine Leukocytes 2+ Abnormal Negative Urine Blood Negative N Negative Urine Nitrite Negative N Negative Urine Bilirubin Negative N Negative Urine Glucose Negative N Negative Urine White Blood Cell 3+(>20/hpf) Abnormal Absent Urine Red Blood Cell Trace(0-2/hpf) N Absent Urine Bacteria 1+ Abnormal Absent Urine Squamous Epithelial Cell Present Abnormal Absent Comp Metabolic Panel 11/26/2014 [facility] Sodium 135 mmol/L N 133-[address] [place] [address] [phone] Potassium 4.3 mmol/L N 3.5-5.0 Chloride 102 mmol/L N 101-111 Co2 Carbon Dioxide 30 mmol/L N 22-32 Anion Gap 3 mmol/L N 2-11 Glucose 168 mg/dL High 70-100 Blood Urea Nitrogen 22 mg/dL N 6-24 Creatinine 0.73 mg/dL N 0.51-0.95 BUN/Creatinine Ratio 30.1 High 8-20 Calcium 9.4 mg/dL N 8.6-10.3 Total Protein 6.3 g/dL Low 6.4-8.9 Albumin 3.9 g/dL N 3.2-5.2 Globulin 2.4 g/dL N 2-4 Albumin/Globulin Ratio 1.6 N 1-3 Total Bilirubin 0.60 mg/dL N 0.2-1.0 Alkaline Phosphatase 58 U/L N 34-104 Alt 21 U/L N 7-52 Ast 27 U/L N 13-39 Egfr Non- 76.3 N >60 Egfr 98.2 N >60 37 Laboratory test 11/26/2014 [facility] Hemoglobin A1c 7.9 % High Less [address] than [address] [place] [address] [phone] Urine 11/26/2014 [facility] Ur Microalbumin 8.0 N Microalbumin [address] (mg/L) mg/[place] [address] [phone] Urine Creatinine 58.99 mg/dL N Urine Microalbumin/Creatinine 13.5 N Less Than 31 Lipid Profile 11/26/2014 [facility] Triglycerides 104 mg/dL N 39 (Trig/Chol/HDL) [address] [place] [address] [phone] Cholesterol 141 mg/dL N 40 HDL Cholesterol 46.5 mg/dL N 41 LDL Cholesterol 74 mg/dL N 42 Laboratory test 05/31/2014 [facility] Hemoglobin A1c 6.8 5-7 finding Basic Metabolic 11/13/2013 [facility] Sodium 136 mmol/L 133- [address] [place] [address] [phone] Potassium 4.2 mmol/L 3.7-5.6 Chloride 101 mmol/L 101-111 Co2 Carbon Dioxide 28 mmol/L 22-32 Anion Gap 7 mmol/L 2-11 Glucose 144 mg/dL High 70-100 Blood Urea Nitrogen 22 mg/dL 6-24 Creatinine 0.73 mg/dL 0.51-0.95 BUN/Creatinine Ratio 30.1 High 8-20 Calcium 9.6 mg/dL 8.6-10.3 Egfr Non- 76.5 >60 Egfr 98.4 >60 43 Lipid Profile 11/13/2013 [facility] Triglycerides 92 mg/dL 44 (Trig/Chol/HDL) [address] [place] [address] [phone] Cholesterol 118 mg/dL 45 HDL Cholesterol 42.4 mg/dL 46 LDL Cholesterol 57 mg/dL 47 Laboratory test 11/13/2013 [facility] Hemoglobin A1c 7.1 % High Less [address] [place] [address] [phone] Laboratory test 08/17/2013 [facility] Hemoglobin A1c 7.3 High 5-7 finding Urine 08/17/2013 [facility] Ur Microalbumin 2.0 [address] (mg/L) mg/[place] [address] [phone] Urine Creatinine 37.8 mg/dL Urine Microalbumin/Creatinine 5.3 Less Than 31 Comp Metabolic Panel 02/06/2013 [facility] Sodium 139 mmol/L 133-[address] [place] [address] [phone] Potassium 5.9 mmol/L High 3.5-5.0 Chloride 105 mmol/L 101-111 Co2 Carbon Dioxide 28.0 mmol/L 22-32 Anion Gap 6.0 mmol/L 2-11 Glucose 103 mg/dL High 70-100 Blood Urea Nitrogen 17 mg/dL 6-24 Creatinine 0.80 mg/dL 0.50-1.40 BUN/Creatinine Ratio 21.3 High 8-20 Calcium 10.4 mg/dL High 8.1-9.9 Total Protein 6.1 g/dL Low 6.2-8.1 Albumin 3.6 g/dL 3.2-5.2 Globulin 2.5 g/dL 2-4 Albumin/Globulin Ratio 1.4 1-3 Total Bilirubin 0.9 mg/dL 0.4-1.5 Alkaline Phosphatase 60 U/L 30-110 Alt 35 U/L 14-54 Ast 38 U/L 12-42 Egfr Non- 68.8 >60 Egfr 88.5 >60 50 Lipid Profile 02/06/2013 [facility] Triglycerides 70 mg/dL 40 -200 (Trig/Chol/HDL) [address] [place] [address] [phone] Cholesterol 142 mg/dL Less than 200 HDL Cholesterol 43 mg/dL 40-60 51 Cholesterol/HDL Ratio 3.3 Average 1-4.44 LDL Cholesterol 85.0 Less Than 100 52 CBC Auto Diff 02/06/2013 [facility] White Blood 6.4 10^3/uL 4.8-10.[address] [place] [address] [phone] Red Blood Count 4.11 10^6/uL 4.0-5.4 Hemoglobin 13.4 g/dL 12.0-16.0 Hematocrit 39 % 35-47 Mean Corpuscular Volume 95 fL 80-97 Mean Corpuscular Hemoglobin 33 pg High 27-31 Mean Corpuscular HGB Conc 34 g/dL 31-36 Red Cell Distribution Width 14 % 10.5-15 Platelet Count 267 10^3/uL 150-450 Mean Platelet Volume 9 um3 7.4-10.4 Abs Neutrophils 2.7 10^3/uL 1.5-7.7 Abs Lymphocytes 2.4 10^3/uL 1.0-4.8 Abs Monocytes 0.8 10^3/uL 0-0.8 Abs Eosinophils 0.4 10^3/uL 0-0.6 Abs Basophils 0.1 10^3/uL 0-0.2 Abs Nucleated RBC 0.01 10^3/uL Granulocyte % 42.5 % 38-83 Lymphocyte % 37.9 % 25-47 Monocyte % 12.7 % High 1-9 Eosinophil % 5.5 % 0-6 Basophil % 1.4 % 0-2 Nucleated Red Blood Cells % 0.1 Basic Metabolic Panel 12/31/2012 [facility] Sodium 139 mmol/L 133-145 [address] [place] [address] [phone] Potassium 4.6 mmol/L 3.5-5.0 Chloride 103 mmol/L 101-111 Co2 Carbon Dioxide 29.0 mmol/L 22-32 Anion Gap 7.0 mmol/L 2-11 Glucose 127 mg/dL High 70-100 Blood Urea Nitrogen 18 mg/dL 6-24 Creatinine 0.80 mg/dL 0.50-1.40 BUN/Creatinine Ratio 22.5 High 8-20 Calcium 9.2 mg/dL 8.1-9.9 Egfr Non- 68.8 >60 Egfr 88.5 >60 53 Laboratory test 12/31/2012 [facility] Hemoglobin A1c 7.2 % High Less than 54 finding 101 [facility] 6.[address] [place] [address] [phone] TSH (Thyroid Stimulating Horm) 2.54 miu/mL 0.34-5.60 55 Laboratory test 08/12/2012 [facility] Hemoglobin A1c 7.3 High 5-7 finding Urine Culture & 05/12/2012 [facility] M 56 Sensitivi [address] [facility] ----- <[place] [address] NOTE> [phone] Ua Routine 05/12/2012 [facility] Ua Specific 1.005 [place] Ua PH 6 Ua Color Yellow Ua Appera cloudy Ua WBC Large Ua Protein TRace Ua Glucose neg Ua Ketones neg Ua Bilirubin neg Ua Urobilinogen neg Ua Nitrite neg Ua Occult Blood neg Lipid Profile 04/26/2012 [facility] Triglyceride 67 mg/dL 40- 200 (Trig/Chol/HDL) [address] [place] [address] [phone] Cholesterol 171 mg/dL Less Than 200 57 High Density Lipoprotein 47 mg/dL 40-60 58 Cholesterol/HDL Ratio 3.64 AVERAGE 1-4.44 Low Density Lipoprotein 111 mg/dL High Less Than 100 59 Comp Metabolic Panel 04/26/2012 [facility] Sodium 136 mmol/L 135-145 [address] [place] [address] [phone] Potassium 4.6 mmol/L 3.5-5.0 Chloride 102 mmol/L 101-111 Co2 (Carbon Dioxide) 27.0 mmol/L 22-32 Anion Gap 7.0 mmol/L 2-11 60 Glucose 159 mg/dL High 70-100 BUN 16 mg/dL 6-24 Creatinine 0.7 mg/dL 0.50-1.40 One Over Creatinine 1.42 BUN/Creatinine Ratio 22.9 High 8-20 Calcium 9.5 mg/dL 8.1-9.9 Total Protein 6.6 GM/DL 6.2-8.1 Albumin 3.8 GM/DL 3.2-5.2 Globulin 2.8 GM/DL 2-4 Albumin/Globulin Ratio 1.4 1-3 Bilirubin Total 1.1 mg/dL 0.4-1.5 61 Alkaline Phosphatase 62 U/L 30-110 Alt (SGPT) 39 U/L 14-54 Ast (Sgot) 42 U/L 12-42 eGFR Non- 80.5 > 60 eGFR 103.5 > 60 62 Laboratory test 04/26/2012 [facility] Hemoglobin A1c 7.3 % High Less [address] [place] [address] [phone] Urine 04/26/2012 [facility] Microalbumin 5.[address] (MG/L) mg/[place] [address] [phone] Urine Creatinine 40.8 mg/dL Rod Alb/Creatinine Ratio 12.3 UG/MG Less Than 30 64 Laboratory test 10/29/2011 [facility] Hemoglobin A1c 7.2 High 5-7 finding Basic Metabolic 05/11/2011 [facility] Sodium 140 mmol/L 135- [address] [place] [address] [phone] Potassium 4.4 mmol/L 3.5-5.0 Chloride 104 mmol/L 101-111 Co2 (Carbon Dioxide) 29.0 mmol/L 22-32 Anion Gap 7.0 mmol/L 2-11 65 Glucose 123 mg/dL High 70-100 BUN 20 mg/dL 6-24 Creatinine 0.8 mg/dL 0.50-1.40 One Over Creatinine 1.25 BUN/Creatinine Ratio 25.0 High 8-20 Calcium 9.3 mg/dL 8.1-9.9 eGFR Non- 69.2 > 60 eGFR 89.0 > 60 66 Laboratory test 04/27/2011 [facility] Hemoglobin A1c 7.3 High 5-7 finding CBC Auto Diff 04/03/2011 [facility] White Blood Count 7.6 CUMM 4.8-10.8 [address] [place] [address] [phone] Red Cell Count 4.16 CUMM Low 4.2-5.4 Hemoglobin 13.3 g/dL 12.0-16.0 Hematocrit 39 % 35-47 Mean Corpuscular Volume 93 um3 79-97 Mean Corpuscular Hemoglob 32 pg High 27-31 Mean Corpuscular HGB Cone 34 g/dL 32-36 Redcell Distribution WDTH 14 % 10.5-15 Platelet Count 249 CUMM 150-450 Mean Platelet Volume 9.1 um3 7.4-10.4 Gran % 57.7 % 38-83 Lymph % 26.3 % 25-47 Mononuclear % 12.2 % High 1-9 Eosinophil % 3.1 % 0-6 Basophil % 0.7 % 0-2 Abs Lymphs 2.0 1.0-4.8 Abs Mononuclear 0.9 High 0-0.8 Absolute Neutrophil Count 4.4 1.5-7.7 Abs Eosinophils 0.2 0-0.6 Abs Basophils 0.1 0-0.2 Lipid Profile 04/03/2011 [facility] Triglyceride 48 mg/dL 40- 200 (Trig/Chol/HDL) [address] [place] [address] [phone] Cholesterol 162 mg/dL Less Than 200 67 High Density Lipoprotein 47 mg/dL 40-60 68 Cholesterol/HDL Ratio 3.45 AVERAGE 1-4.44 Low Density Lipoprotein 105 mg/dL High Less Than 100 69 Comp Metabolic Panel 04/03/2011 [facility] Sodium 139 mmol/L 135-145 [address] [place] [address] [phone] Potassium 4.1 mmol/L 3.5-5.0 Chloride 105 mmol/L 101-111 Co2 (Carbon Dioxide) 28.0 mmol/L 22-32 Anion Gap 6.0 mmol/L 2-11 70 Glucose 139 mg/dL High 70-100 BUN 16 mg/dL 6-24 Creatinine 0.70 mg/dL 0.50-1.40 One Over Creatinine 1.40 BUN/Creatinine Ratio 22.9 High 8-20 Calcium 9.2 mg/dL 8.1-9.9 Total Protein 6.0 GM/DL Low 6.2-8.1 Albumin 3.6 GM/DL 3.2-5.2 Globulin 2.4 GM/DL 2-4 Albumin/Globulin Ratio 1.5 1-3 Bilirubin Total 0.7 mg/dL 0.4-1.5 71 Alkaline Phosphatase 63 U/L 30-110 Alt (SGPT) 29 U/L 14-54 Ast (Sgot) 38 U/L 12-42 eGFR Non- 80.7 > 60 eGFR 103.8 > [address] Mccarthy's 04/03/2011 [facility] TSH 1.69 MIU/ML 0.34-5.60 Lab Panel [address] [place] [address] [phone] Urine 02/13/2011 [facility] Urine ENTEROBACTERIACE 73 Culture & [address] Culture <SEE NOTE> [place] [address] Sensitivi [phone] Laboratory 10/31/2010 [facility] Clotest POSITIVE Abnormal test [address] [place] [address] [phone] DR Mccarthy's 10/03/2010 [facility] TSH 2.92 MIU/ML 0.34-5.60 Lab Panel [address] [place] [address] [phone] Comp 10/03/2010 [facility] Sodium 138 mmol/L 135-[address] [place] [address] [phone] Potassium 4.6 mmol/L 3.5-5.0 Chloride 102 mmol/L 101-111 Co2 (Carbon Dioxide) 29.0 mmol/L 22-32 Anion Gap 7.0 mmol/L 2-11 74 Glucose 147 mg/dL High 70-100 BUN 16 mg/dL 6-24 Creatinine 0.70 mg/dL 0.50-1.40 One Over Creatinine 1.40 BUN/Creatinine Ratio 22.9 High 8-20 Calcium 10.1 mg/dL High 8.1-9.9 Total Protein 6.5 GM/DL 6.2-8.1 Albumin 4.0 GM/DL 3.2-5.2 Globulin 2.5 GM/DL 2-4 Albumin/Globulin Ratio 1.6 1-3 Bilirubin Total 0.8 mg/dL 0.4-1.5 75 Alkaline Phosphatase 58 U/L 30-110 Alt (SGPT) 29 U/L 14-54 Ast (Sgot) 38 U/L 12-42 eGFR Non- 80.9 > 60 eGFR 104.1 > 60 76 Lipid Profile 10/03/2010 [facility] Triglyceride 79 mg/dL 40- 200 (Trig/Chol/HDL) [address] [place] [address] [phone] Cholesterol 193 mg/dL Less Than 200 77 High Density Lipoprotein 55 mg/dL 40-60 78 Cholesterol/HDL Ratio 3.51 AVERAGE 1-4.44 Low Density Lipoprotein 122 mg/dL High Less Than 100 79 CBC With 10/03/2010 [facility] White Blood 7.2 CUMM 4.8-10.8 Electronic Diff [address] [place] [address] [phone] Red Cell Count 4.23 CUMM 4.2-5.4 Hemoglobin 13.3 g/dL 12.0-16.0 Hematocrit 40 % 35-47 Mean Corpuscular Volume 95 um3 79-97 Mean Corpuscular Hemoglob 32 pg High 27-31 Mean Corpuscular HGB Cone 33 g/dL 32-36 Redcell Distribution WDTH 14 % 10.5-15 Platelet Count 323 CUMM 150-450 Mean Platelet Volume 9.3 um3 7.4-10.4 Gran % 51.6 % 38-83 Lymph % 31.1 % 25-47 Mononuclear % 11.0 % High 1-9 Eosinophil % 5.5 % 0-6 Basophil % 0.8 % 0-2 Abs Lymphs 2.2 1.0-4.8 Abs Mononuclear 0.8 0-0.8 Absolute Neutrophil Count 3.7 1.5-7.7 Abs Eosinophils 0.4 0-0.6 Abs Basophils 0.1 0-0.2 Laboratory test 10/03/2010 [facility] Hemoglobin A1c 7.2 % High Less Than [address] [place] [address] [phone] Vitamin D, 25 10/03/2010 [facility] 25-Hydroxy <4.0 () Hydroxy 101 Vitamin D2 ng/[place] [address] [phone] 25-Hydroxy Vitamin D3 43 ng/mL () 25-Hydroxy Vitamin D Total 43 ng/mL () 81 Comp Metabolic Panel 11/11/2009 [facility] Sodium 137 mmol/L 135-[address] [place] [address] [phone] Potassium 4.4 mmol/L 3.5-5.0 Chloride 104 mmol/L 101-111 Co2 (Carbon Dioxide) 30.0 mmol/L 22-32 Anion Gap 3.0 mmol/L 2-11 83 Glucose 119 mg/dL High 70-100 84 BUN 23 mg/dL 6-24 Creatinine 0.66 mg/dL 0.50-1.40 One Over Creatinine 1.50 BUN/Creatinine Ratio 34.8 High 8-20 Calcium 9.5 mg/dL 8.1-9.9 85 Total Protein 6.4 GM/DL 6.2-8.1 Albumin 3.7 GM/DL 3.2-5.2 Globulin 2.7 GM/DL 2-4 Albumin/Globulin Ratio 1.4 1-3 Bilirubin Total 0.8 mg/dL 0.4-1.5 86 Alkaline Phosphatase 59 U/L 30-110 Alt (SGPT) 23 U/L 14-54 Ast (Sgot) 36 U/L 12-42 eGFR Non- 92.3 > 60 eGFR 111.7 > 60 87 Lipid Profile 11/11/2009 [facility] Triglyceride 67 mg/dL 40- 200 (Trig/Chol/HDL) [address] [place] [address] [phone] Cholesterol 152 mg/dL Less Than 200 88 High Density Lipoprotein 43 mg/dL 40-60 89 Cholesterol/HDL Ratio 3.53 AVERAGE 1-4.44 Low Density Lipoprotein 96 mg/dL Less Than 100 90 CBC With 11/11/2009 [facility] White Blood 6.3 CUMM 4.8-10.[address] [place] [address] [phone] Red Cell Count 4.04 CUMM Low 4.2-5.4 Hemoglobin 13.2 g/dL 12.0-16.0 Hematocrit 38 % 35-47 Mean Corpuscular Volume 94 um3 79-97 Mean Corpuscular Hemoglob 33 pg High 27-31 Mean Corpuscular HGB Cone 35 g/dL 32-36 Redcell Distribution WDTH 13 % 10.5-15 Platelet Count 254 CUMM 150-450 Mean Platelet Volume 8.4 um3 7.4-10.4 Gran % 54.8 % 38-83 Lymph % 26.2 % 25-47 Mononuclear % 10.3 % High 1-9 Eosinophil % 7.1 % High 0-6 Basophil % 1.6 % 0-2 Abs Lymphs 1.6 1.0-4.8 Abs Mononuclear 0.6 0-0.8 Absolute Neutrophil Count 3.6 1.5-7.7 Abs Eosinophils 0.4 0-0.6 Abs Basophils 0.1 0-0.2 Laboratory test 11/11/2009 [facility] Hemoglobin A1c 7.2 % High Less Than [address] [place] [address] [phone] DR Mccarthy[facility] Lab 11/11/2009 [facility] TSH 1.74 0.34-5.[address] MIU/[place] [address] [phone] Basic Metabolic 04/25/2009 [facility] Sodium 139 135-[address] mmol/[place] [address] [phone] Potassium 5.4 mmol/L High 3.5-5.0 Chloride 106 mmol/L 101-111 Co2 (Carbon Dioxide) 29.0 mmol/L 22-32 Anion Gap 4.0 mmol/L 2-11 92 Glucose 123 mg/dL High 70-100 93 BUN 16 mg/dL 6-24 Creatinine 0.70 mg/dL 0.50-1.40 One Over Creatinine 1.40 BUN/Creatinine Ratio 22.9 High 8-20 Calcium 9.5 mg/dL 8.1-9.9 94 eGFR Non- 86.2 > 60 eGFR 104.3 > 60 95 Laboratory test 04/25/2009 [facility] TSH 1.92 MIU/ML 0.34- 5.[address] [place] [address] [phone] Thyroxine Free 0.94 NG/ML 0.61-1.24 96 Laboratory 04/21/2009 [facility] Hemoglobin A1c 7.1 % High Less 97, 98 test finding [address] Than 6.0 [place] [address] [phone] CBC With 12/13/2008 [facility] White Blood 7.6 CUMM 4.8-10.8 [address] [place] [place] [address] [phone] Red Cell Count 4.17 CUMM Low 4.2-5.4 Hemoglobin 13.3 g/dL 12.0-16.0 Hematocrit 38 % 35-47 Mean Corpuscular Volume 92 um3 79-97 Mean Corpuscular Hemoglob 32 pg High 27-31 Mean Corpuscular HGB Cone 35 g/dL 32-36 Redcell Distribution WDTH 14 % 10.5-15 Platelet Count 308 CUMM 150-450 Mean Platelet Volume 8.4 um3 7.4-10.4 Gran % 53.4 % 38-83 Lymph % 32.5 % 25-47 Mononuclear % 11.6 % High 1-9 Eosinophil % 1.8 % 0-6 Basophil % 0.7 % 0-2 Abs Lymphs 2.5 1.0-4.8 Abs Mononuclear 0.9 High 0-0.8 Absolute Neutrophil Count 4.1 1.5-7.7 Abs Eosinophils 0.1 0-0.6 Abs Basophils 0.1 0-0.2 Protime 12/13/2008 [facility] Protime 10.8 Low 10.9-13.[address] [place] [address] [phone] Inr 0.80 100 Basic Metabolic Panel 12/13/2008 [facility] Sodium 138 mmol/L 135-[address] [place] [address] [phone] Potassium 5.2 mmol/L High 3.5-5.0 Chloride 101 mmol/L 101-111 Co2 (Carbon Dioxide) 31.0 mmol/L 22-32 Anion Gap 6.0 mmol/L 2-11 101 Glucose 97 mg/dL 70-100 102 BUN 11 mg/dL 6-24 Creatinine 0.60 mg/dL 0.50-1.40 One Over Creatinine 1.60 BUN/Creatinine Ratio 18.3 8-20 Calcium 10.1 mg/dL High 8.1-9.9 103 Basic Metabolic 10/07/2008 [facility] Sodium 137 mmol/L 135- [address] [place] [address] [phone] Potassium 5.6 mmol/L High 3.5-5.0 Chloride 104 mmol/L 101-111 Co2 (Carbon Dioxide) 29.0 mmol/L 22-32 Anion Gap 4.0 mmol/L 2-11 105 Glucose 128 mg/dL High 70-100 106 BUN 18 mg/dL 6-24 Creatinine 0.60 mg/dL 0.50-1.40 One Over Creatinine 1.60 BUN/Creatinine Ratio 30.0 High 8-20 Calcium 9.5 mg/dL 8.1-9.9 107 Laboratory test 10/07/2008 [facility] Hemoglobin A1c 7.2 % High <6.0 [address] [place] [address] [phone] CBC With 04/12/2008 [facility] White Blood 6.0 CUMM 4.8-10.8 109 Electronic Diff [address] [place] [address] [phone] Red Cell Count 4.16 CUMM Low 4.2-5.4 Hemoglobin 13.2 g/dL 12.0-16.0 Hematocrit 38 % 35-47 Mean Corpuscular Volume 92 um3 79-97 Mean Corpuscular Hemoglob 32 pg High 27-31 Mean Corpuscular HGB Cone 35 g/dL 32-36 Redcell Distribution WDTH 13 % 10.5-15 Platelet Count 268 CUMM 150-450 Mean Platelet Volume 8.4 um3 7.4-10.4 Gran % 49.1 % 38-83 Lymph % 35.9 % 20-45 Mononuclear % 10.8 % High 1-9 Eosinophil % 3.3 % 0-6 Basophil % 0.9 % 0-2 Abs Lymphs 2.2 1.0-4.8 Abs Mononuclear 0.6 0-0.8 Absolute Neutrophil Count 2.9 1.5-7.7 Abs Eosinophils 0.2 0-0.6 Abs Basophils 0.1 0-0.2 Comp Metabolic Panel 04/12/2008 [facility] Sodium 139 mmol/L 135-[address] [place] [address] [phone] Potassium 4.9 mmol/L 3.5-5.0 Chloride 107 mmol/L 101-111 Co2 (Carbon Dioxide) 29.0 mmol/L 22-32 Anion Gap 3.0 mmol/L 2-11 110 Glucose 128 mg/dL High 70-105 BUN 19 mg/dL 6-24 Creatinine 0.9 mg/dL 0.5-1.4 One Over Creatinine 1.11 BUN/Creatinine Ratio 21.1 High 8-20 Calcium 9.4 mg/dL 8.1-9.9 111 Total Protein 6.5 GM/DL 6.2-8.1 Albumin 3.7 GM/DL 3.2-5.2 Globulin 2.8 GM/DL 2-4 Albumin/Globulin Ratio 1.3 1-3 Bilirubin Total 0.9 mg/dL 0.4-1.5 Alkaline Phosphatase 50 U/L 30-110 Alt (SGPT) 25 U/L 14-54 Ast (Sgot) 34 U/L 12-42 Lipid Profile 04/12/2008 [facility] Triglyceride 147 mg/dL 40 -200 (Trig/Chol/HDL) [address] [place] [address] [phone] Cholesterol 165 mg/dL Less Than 200 112 High Density Lipoprotein 39 mg/dL Low 40-60 113 Cholesterol/HDL Ratio 4.23 AVERAGE 1-4.44 Low Density Lipoprotein 97 mg/dL Less Than 100 114 Laboratory test 04/12/2008 [facility] TSH 1.83 MIU/ML 0.34- 5.60 finding [address] [place] [address] [phone] Hemoglobin A1c 7.3 % High <6.0 115 Gram Positive Sensitivity 12/11/2007 [facility] Ampicillin <=2 S [address] [place] [address] [phone] Ciprofloxacin 1 S Nitrofurantoin <=16 S High Level Streptomycin SYN-R R Levofloxacin 1 S Penicillin 2 S Tetracycline >=16 R Vancomycin <=1 S Culture Urine 12/09/2007 [facility] Urine Culture [GROUP D 116 [address] [facility] Sensitivi ENTEROC <[place] [address] NOTE> [phone] Laboratory test 10/15/2007 [facility] Hemoglobin A1c 7.1 % High <6.0 117 finding [address] [place] [address] [phone] Basic Metabolic 10/06/2007 [facility] One Over 1.[address] [place] [address] [phone] Anion Gap 5.0 mmol/L 2-11 118 BUN 15 mg/dL 6-24 Calcium 9.1 mg/dL 8.7-10.2 Chloride 104 mmol/L 101-111 Co2 (Carbon Dioxide) 29.0 mmol/L 22-32 Glucose 126 mg/dL High 70-105 Potassium 4.8 mmol/L 3.5-5.0 Sodium 138 mmol/L 135-145 BUN/Creatinine Ratio 18.8 8-20 Creatinine 0.8 mg/dL 0.5-1.4 Laboratory test 04/07/2007 [facility] Hemoglobin A1c 7.2 % High <6.0 [address] [place], [place] [id number] [phone] Culture Urine 01/18/2007 [facility] Urine Culture NG [address] [place] [address] [phone] Laboratory test 01/18/2007 [facility] Surgical -------- [address] Pathology -------- [place] [address] <SEE [phone] NOTE> CBC With 01/09/2007 [facility] White Blood 6.9 CUMM 4.8-10.8 122 Electronic Diff [address] [place] [address] [phone] Abs Basophils 0.1 0-0.2 Abs Eosinophils 0.1 0-0.6 Absolute Neutrophil Count 3.9 1.5-7.7 Abs Lymphs 2.0 1.0-4.8 Abs Mononuclear 0.8 0-0.8 Basophil % 0.9 % 0-2 Hematocrit 37 % 35-47 Hemoglobin 13.1 g/dL 12.0-16.0 Eosinophil % 1.8 % 0-6 Gran % 56.4 % 38-83 Lymph % 29.9 % 20-45 Mean Corpuscular HGB Cone 35 g/dL 32-36 Mean Corpuscular Hemoglob 32 pg High 27-31 Mean Corpuscular Volume 91 um3 79-97 Mean Platelet Volume 8.2 um3 7.4-10.4 Mononuclear % 11.0 % High 1-9 Platelet Count 317 CUMM 150-450 Red Cell Count 4.11 CUMM Low 4.2-5.4 Redcell Distribution WDTH 14 % 10.5-15 Type And Screen 01/09/2007 [facility] Patient Blood Type A POSITIVE [address] [place] [address] [phone] Antibody Screen NEGATIVE Specimen Discard Date 01/23/07 123 Electrolytes 01/09/2007 [facility] Anion Gap 7.0 mmol/L 2-11 124 [address] [place] [address] [phone] Chloride 105 mmol/L 101-111 Co2 (Carbon Dioxide) 29.0 mmol/L 22-32 Potassium 5.1 mmol/L High 3.5-5.0 Sodium 141 mmol/L 135-145 Laboratory test 01/09/2007 [facility] Glucose 141 mg/dL High 70-105 [place] [address] [phone] Creatinine 01/09/2007 [facility] One Over 1.25 [facility] [place] [address] [phone] Creatinine 0.8 mg/dL 0.5-1.4 Laboratory test finding 01/09/2007 [facility] BUN 19 mg/dL 6- 24 [address] [place] [address] [phone] 1 [id number] 2 SEE RESULT BELOW Name: JOCELYN PRESTON : [address]: Luis Manuel Castro MD Acct: [id number] Unit: [id number] AGE: 87 Location: [facility] Re12/04/18 SEX: F Status: [facility] [place] SPEC: [id number] RAY: 12/04/[address] [facility] DR: Luis Manuel Castro MD REQ: [id number] RECD: 12/04/18 STATUS: SOUT _ ORDERED: LEVEL 3 COMMENTS: [id number] FINAL DIAGNOSIS Left thumb tendon sheath, excision: -- Ganglion cyst. PRE-OPERATIVE DIAGNOSIS Mass tendon sheath left thumb GROSS DESCRIPTION The specimen is received in formalin labeled, Tendon Sheath Nodule Left Thumb , and consists of a 0.4 x 0.3 by up to 0.2 cm matta-pink irregular rubbery fibrous tissue fragment which is submitted entirely in one cassette. Signed by and Reported on: Ngoc Guerrero MD 12/05/18 1828 END OF REPORT DEPARTMENT OF PATHOLOGY, [address] [place] [address] Ariel Vila M.D. Director [facility] # [id number] 3 Because ethnic data is not always readily available, this report includes an eGFR for both -Americans and non- Americans. The National Kidney Disease Education Program (NKDEP) does not endorse the use of the MDRD equation for patients that are not between the ages of 18 and 70, are , have extremes of body size, muscle mass, or nutritional status, or are non- or non-. According to the National Kidney Foundation, irrespective of diagnosis, the stage of the disease is based on the level of kidney function: Stage Description GFR(mL/min/1.73 m(2)) 1 Kidney damage with normal or decreased GFR 90 2 Kidney damage with mild decrease in GFR 60-89 3 Moderate decrease in GFR 30-59 4 Severe decrease in GFR 15-29 5 Kidney failure <15 (or dialysis) 4 Desirable: <150 Borderline High: 150-199 High: 200-499 Very High: >500 5 Desirable: <200 Borderline High: 200-239 High: >239 6 Low: <40 Desirable: 40-60 High: >60 7 Desirable: <100 Near Optimal: 100-129 Borderline High: 130-159 High: 160-189 Very High: >189 8 [id number] SEE RESULT BELOW Name: JOCELYN PRESTON : [address]: Nora Leigh NP Acct: [id number] Unit: [id number] AGE: 87 Location: [facility] Re08/11/18 SEX: F Status: REG REF SPEC: [id number] RAY: 08/11/18-[address] [facility] DR: Nora Leigh NP REQ: [id number] RECD: 08/11/18 STATUS: COMP _ [facility]: Daysi,Yeast DNA COMMENTS: [id number] QUERIES: Would you like to order Trichomonas Vaginalis testing? No Procedure Result Reported Site Gardnerella/Yeast: Vaginal DNA Final 08/12/18- 1214 ML Organism 1 Negative Gardnerella Organism 2 Negative Rita The presence of G. vaginalis, although suggestive, is not diagnostic for bacterial vaginosis. Results should be interpreted in conjuction with other clinical and laboratory data available. Women with vaginal discharge should be evaluated for risk factors of cervicitis and pelvic inflammatory disease, toxic shock syndrome (S.aureus), and if present, evaluated for organisms not included in this assay such as N. gonorrhoeae, C. trachomatis, Mobiluncus, Mycoplasma and/or Prevotella. Mixed infections may occur. The performance of this test on patient specimens collected during or immediately after antimicrobial therapy is unknown. The presence or absence of Rita species, or G. vaginalis cannot be used as a test for therapeutic success or failure. * ML - Main Lab . END OF REPORT DEPARTMENT OF PATHOLOGY, [address] [place] [address] Ariel Vila M.D. Director [facility] # [id number] 11 Because ethnic data is not always readily available, this report includes an eGFR for both -Americans and non- Americans. The National Kidney Disease Education Program (NKDEP) does not endorse the use of the MDRD equation for patients that are not between the ages of 18 and 70, are , have extremes of body size, muscle mass, or nutritional status, or are non- or non-. According to the National Kidney Foundation, irrespective of diagnosis, the stage of the disease is based on the level of kidney function: Stage Description GFR(mL/min/1.73 m(2)) 1 Kidney damage with normal or decreased GFR 90 2 Kidney damage with mild decrease in GFR 60-89 3 Moderate decrease in GFR 30-59 4 Severe decrease in GFR 15-29 5 Kidney failure <15 (or dialysis) 12 Desirable: <150 Borderline High: 150-199 High: 200-499 Very High: >500 13 Desirable: <200 Borderline High: 200-239 High: >239 14 Low: <40 Desirable: 40-60 High: >60 15 Desirable: <100 Near Optimal: 100-129 Borderline High: 130-159 High: 160-189 Very High: >189 16 Because ethnic data is not always readily available, this report includes an eGFR for both -Americans and non- Americans. The National Kidney Disease Education Program (NKDEP) does not endorse the use of the MDRD equation for patients that are not between the ages of 18 and 70, are , have extremes of body size, muscle mass, or nutritional status, or are non- or non-. According to the National Kidney Foundation, irrespective of diagnosis, the stage of the disease is based on the level of kidney function: Stage Description GFR(mL/min/1.73 m(2)) 1 Kidney damage with normal or decreased GFR 90 2 Kidney damage with mild decrease in GFR 60-89 3 Moderate decrease in GFR 30-59 4 Severe decrease in GFR 15-29 5 Kidney failure <15 (or dialysis) 17 Test Performed by: [facility] [address] Perinatal Tech: Delta Damian II, M.D., Ph.D. 18 Because ethnic data is not always readily available, this report includes an eGFR for both -Americans and non- Americans. The National Kidney Disease Education Program (NKDEP) does not endorse the use of the MDRD equation for patients that are not between the ages of 18 and 70, are , have extremes of body size, muscle mass, or nutritional status, or are non- or non-. According to the National Kidney Foundation, irrespective of diagnosis, the stage of the disease is based on the level of kidney function: Stage Description GFR(mL/min/1.73 m(2)) 1 Kidney damage with normal or decreased GFR 90 2 Kidney damage with mild decrease in GFR 60-89 3 Moderate decrease in GFR 30-59 4 Severe decrease in GFR 15-29 5 Kidney failure <15 (or dialysis) 19 Therapeutic target for the treatment of diabetes Mellitus patients is <7% HBA1C, and in selective patients <6.0%.Please refer to [place] [employer] Diabetic care guidelines for further information. 20 Therapeutic target for the treatment of diabetes Mellitus patients is <7% HBA1C, and in selective patients <6.0%.Please refer to [place] [employer] Diabetic care guidelines for further information. 21 Test Performed by: [facility] - [address] [address] Perinatal Tech: Delta Damian II, M.D., Ph.D. 22 REFERENCE VALUE <=1.0 (Negative) 23 REFERENCE VALUE <20.0 (Negative) 24 Tests for antibodies to dsDNA and CHUY antigens are not performed automatically unless the MICHELLE result is > or= 3.0 U. Studies performed at [facility] indicate that positive MICHELLE results <3.0 U are rarely accompanied by positive second order tests. Test Performed by: [facility] - [address] [address] Perinatal Tech: Delta Damian II, M.D., Ph.D. 25 Unable to calculate due to low microalbumin 26 Therapeutic target for the treatment of diabetes Mellitus patients is <7% HBA1C, and in selective patients <6.0%.Please refer to [place] [employer] Diabetic care guidelines for further information. 27 Desirable <150 Borderline high 150-199 High 200-499 Very High >500 28 Desirable <200 Borderline high 200-239 High >239 29 Low <40 Desirable: 40-60 High: >60 30 Desirable: <100 mg/dL Near Optimal: 100-129 mg/dL Borderline High: 130-159 mg/dL High: 160-189 mg/dL Very High: >189 mg/dL 31 Because ethnic data is not always readily available, this report includes an eGFR for both -Americans and non- Americans. The National Kidney Disease Education Program (NKDEP) does not endorse the use of the MDRD equation for patients that are not between the ages of 18 and 70, are , have extremes of body size, muscle mass, or nutritional status, or are non- or non-. According to the National Kidney Foundation, irrespective of diagnosis, the stage of the disease is based on the level of kidney function: Stage Description GFR(mL/min/1.73 m(2)) 1 Kidney damage with normal or decreased GFR 90 2 Kidney damage with mild decrease in GFR 60-89 3 Moderate decrease in GFR 30-59 4 Severe decrease in GFR 15-29 5 Kidney failure <15 (or dialysis) 32 [id number] FASTING 33 Dance Professor: [id number] LINDSEY DIEHL 34 Because ethnic data is not always readily available, this report includes an eGFR for both -Americans and non- Americans. The National Kidney Disease Education Program (NKDEP) does not endorse the use of the MDRD equation for patients that are not between the ages of 18 and 70, are , have extremes of body size, muscle mass, or nutritional status, or are non- or non-. According to the National Kidney Foundation, irrespective of diagnosis, the stage of the disease is based on the level of kidney function: Stage Description GFR(mL/min/1.73 m(2)) 1 Kidney damage with normal or decreased GFR 90 2 Kidney damage with mild decrease in GFR 60-89 3 Moderate decrease in GFR 30-59 4 Severe decrease in GFR 15-29 5 Kidney failure <15 (or dialysis) 35 Because ethnic data is not always readily available, this report includes an eGFR for both -Americans and non- Americans. The National Kidney Disease Education Program (NKDEP) does not endorse the use of the MDRD equation for patients that are not between the ages of 18 and 70, are , have extremes of body size, muscle mass, or nutritional status, or are non- or non-. According to the National Kidney Foundation, irrespective of diagnosis, the stage of the disease is based on the level of kidney function: Stage Description GFR(mL/min/1.73 m(2)) 1 Kidney damage with normal or decreased GFR 90 2 Kidney damage with mild decrease in GFR 60-89 3 Moderate decrease in GFR 30-59 4 Severe decrease in GFR 15-29 5 Kidney failure <15 (or dialysis) 36 RUN DATE: 12/02/14 [facility] LAB LIVE PAGE 1 RUN TIME: [address] [place] [id number] Specimen Inquiry Name: JOCELYN PRESTON : [address]: Bandar Mccarthy III, MD Acct: [id number] Unit: [id number] AGE: 83 Location: [facility] Re11/30/14 SEX: F Status: REG REF SPEC: [id number] RAY: 11/30/14-[address] [facility] DR: Bandar Mccarthy III, MD REQ: [id number] RECD: 11/30/14 STATUS: COMP _ SOURCE: URINE SPDESC: ORDERED: Urine Culture QUERIES: Provider Requisition # [id number] Procedure Result Verified Site Urine Culture Final 12/02/14- 0835 ML Organism 1 KLEBSIELLA PNEUMONIAE [place] Count >100,000 (Many) CFU/ML 1. KLEBSIELLA PNEUMONIAE M.I.C. RX --------- ------ Ampicillin R Cefazolin <=4 S Cefepime <=1 S Ceftriaxone <=1 S Ciprofloxacin <=0.25 S Gentamicin <=1 S Levofloxacin <=0.12 S Meropenem <=0.25 S Nitrofurantoin 64 I Tetracycline <=1 S Pipercillin/Tazobactam <=4 S Trimethoprim/Sulfamethoxazole <=20 S Amoxicillin/Clavulanic Acid <=2 S Aztreonam <=1 S Contact the Microbiology Department for any additional antibiotic reporting. * ML - MAIN LAB ([facility]) . END OF REPORT * ML=Testing performed at Main Lab DEPARTMENT OF PATHOLOGY, [address] [place] [address] Ariel Vila M.D. Director [facility] # [id number] 37 Because ethnic data is not always readily available, this report includes an eGFR for both -Americans and non- Americans. The National Kidney Disease Education Program (NKDEP) does not endorse the use of the MDRD equation for patients that are not between the ages of 18 and 70, are , have extremes of body size, muscle mass, or nutritional status, or are non- or non-. According to the National Kidney Foundation, irrespective of diagnosis, the stage of the disease is based on the level of kidney function: Stage Description GFR(mL/min/1.73 m(2)) 1 Kidney damage with normal or decreased GFR 90 2 Kidney damage with mild decrease in GFR 60-89 3 Moderate decrease in GFR 30-59 4 Severe decrease in GFR 15-29 5 Kidney failure <15 (or dialysis) 38 Therapeutic target for the treatment of diabetes Mellitus patients is <7% HBA1C, and in selective patients <6.0%.Please refer to [place] Diabetes [employer] Diabetic care guidelines for further information. 39 Desirable <150 Borderline high 150-199 High 200-499 Very High >500 40 Desirable <200 Borderline high 200-239 High >239 41 Low <40 Desirable: 40-60 High: >60 42 Desirable: <100 mg/dL Near Optimal: 100-129 mg/dL Borderline High: 130-159 mg/dL High: 160-189 mg/dL Very High: >189 mg/dL 43 Because ethnic data is not always readily available, this report includes an eGFR for both -Americans and non- Americans. The National Kidney Disease Education Program (NKDEP) does not endorse the use of the MDRD equation for patients that are not between the ages of 18 and 70, are , have extremes of body size, muscle mass, or nutritional status, or are non- or non-. According to the National Kidney Foundation, irrespective of diagnosis, the stage of the disease is based on the level of kidney function: Stage Description GFR(mL/min/1.73 m(2)) 1 Kidney damage with normal or decreased GFR 90 2 Kidney damage with mild decrease in GFR 60-89 3 Moderate decrease in GFR 30-59 4 Severe decrease in GFR 15-29 5 Kidney failure <15 (or dialysis) 44 Desirable <150 Borderline high 150-199 High 200-499 Very High >500 45 Desirable <200 Borderline high 200-239 High >239 46 Low <40 Desirable: 40-60 High: >60 47 Desirable <100 Near Optimal 100-129 Borderline high 130-159 High 160-189 Very High >189 48 Therapeutic target for the treatment of diabetes Mellitus patients is <7% HBA1C, and in selective patients <6.0%.Please refer to [place] [employer] Diabetic care guidelines for further information. 49 Microalbuminuria in a random sample is defined as: Microalbumin/Creatinine ratio of 30-299 ug/mg. 50 Because ethnic data is not always readily available, this report includes an eGFR for both -Americans and non- Americans. The National Kidney Disease Education Program (NKDEP) does not endorse the use of the MDRD equation for patients that are not between the ages of 18 and 70, are , have extremes of body size, muscle mass, or nutritional status, or are non- or non-. According to the National Kidney Foundation, irrespective of diagnosis, the stage of the disease is based on the level of kidney function: Stage Description GFR(mL/min/1.73 m(2)) 1 Kidney damage with normal or decreased GFR 90 2 Kidney damage with mild decrease in GFR 60-89 3 Moderate decrease in GFR 30-59 4 Severe decrease in GFR 15-29 5 Kidney failure <15 (or dialysis) 51 HDL Interpretation: Undesirable: High Risk: Less than 40 mg/dL Desirable: Low Risk: Greater than 60 mg/dL 52 LDL Interpretation: Low Risk Optimal Level: LDL Less than 100 mg/dL Near or Above Optimal: LDL 100-129 mg/dL Borderline High Risk: LDL 130-159 mg/dL High Risk: LDL 160-189 mg/dL Very High Risk: LDL Greater than 189 mg/dL 53 Because ethnic data is not always readily available, this report includes an eGFR for both -Americans and non- Americans. The National Kidney Disease Education Program (NKDEP) does not endorse the use of the MDRD equation for patients that are not between the ages of 18 and 70, are , have extremes of body size, muscle mass, or nutritional status, or are non- or non-. According to the National Kidney Foundation, irrespective of diagnosis, the stage of the disease is based on the level of kidney function: Stage Description GFR(mL/min/1.73 m(2)) 1 Kidney damage with normal or decreased GFR 90 2 Kidney damage with mild decrease in GFR 60-89 3 Moderate decrease in GFR 30-59 4 Severe decrease in GFR 15-29 5 Kidney failure <15 (or dialysis) 54 Therapeutic target for the treatment of diabetes Mellitus patients is <7% HBA1C, and in selective patients <6.0%.Please refer to [place] [employer] Diabetic care guidelines for further information. 55 FASTING 10 HOUR 56 RUN DATE: 05/14/12 [facility] NMI LIVE PAGE 1 RUN TIME: 1114 Specimen Inquiry RUN USER: INTERFACE Name: JOCELYN PRESTON Status: REG REF Re05/12/12 Age/Sex: 81/F Unit#: [id number] Location: [facility]. : [birth year] SPEC #: [id number] RAY: 05/12/12 STATUS: COMP REQ #: [id number] RECD: 05/12/[address] [facility] DR: [place] SOURCE: URINE ENTR: 05/12/12-[address]: ORDERED: URINE C S QUERIES: MEDENT REQUISITION # [id number] SPECIMEN DESCRIPTION: URINE, CLEAN CATCH ACT WKST: UR 05/14/12 #1 Procedure Result Verified Site > URINE CULTURE SENSITIVI Final 05/14/12- 1113 ML Organism 1 BETA STREP GROUP B Susceptibility testing of penicillins and other B-lactams approved by FDA for treatment of Streptococcus pyogenes (Group A Strep) and Streptococcus agalactiae (Group B Strep) is not necessary for clinical purposes and need not be done routinely, since as with vancomycin, resistant strains have not been recognized. (CLSI H852-A98;p.66) Positive isolates will be saved for one week. Please call the Microbiology Laboratory if further susceptibility testing is needed. COLONY COUNT >100,000 ORGANISMS/ML (MANY) - [facility] Permit #[id number] [address] [place] [address] DEPARTMENT OF PATHOLOGY, [address] [place] [address] [facility] Permit #[id number] Ariel Vila M.D. Director Christy Booker M.D. [employer] 57 CHOLESTEROL INTERPRETATION: Desirable: Less than 200 MG/DL Borderline-High Risk: 200-239 MG/DL High-Risk: 240 MG/DL and over 58 HDL INTERPRETATION: Undesirable: High Risk: Less than 40 MG/DL Desirable: Low Risk: Greater than 60 MG/DL 59 LDL INTERPRETATION: Low Risk Optimal Level: LDL Less than 100 MG/DL Near or Above Optimal: LDL 100-129 MG/DL Borderline High Risk: LDL 130-159 MG/DL High Risk: LDL 160-189 MG/DL Very High Risk: LDL Greater than 189 MG/DL 60 Anion gap measurement may be of limited value in the presence of any alkalosis, especially in a combined acid base disorder. . 61 A metabolite of Naproxen, O-desmethylnaproxen, has been shown to interfere with the [place] method for measuring total bilirubin. Samples from patients who have taken Naproxen have shown spurious elevation in total bilirubin levels. 62 Because ethnic data is not always readily available, this report includes an eGFR for both -Americans and non- Americans. The National Kidney Disease Education Program (NKDEP) does not endorse the use of the MDRD equation for patients that are not between the ages of 18 and 70, are , have extremes of body size, muscle mass, or nutritional status, or are non- or non-. According to the National Kidney Foundation, irrespective of diagnosis, the stage of the disease is based on the level of kidney function: Stage Description GFR(mL/min/1.73 m(2)) 1 Kidney damage with normal or decreased GFR 90 2 Kidney damage with mild decrease in GFR 60-89 3 Moderate decrease in GFR 30-59 4 Severe decrease in GFR 15-29 5 Kidney failure <15 (or dialysis) 63 THERAPEUTIC TARGET FOR THE TREATMENT OF DIABETES MELLITUS PATIENTS IS <7% HBA1C, AND IN SELECTIVE PATIENTS <6.0%. PLEASE REFER TO [place] [employer]ATION DIABETIC CARE GUIDELINES FOR FURTHER INFORMATION. 64 MICROALBUMINURIA IN A RANDOM SAMPLE IS DEFINED : MICROALBUMIN/CREATININE RATIO OF 30-299 ug/mg. . 65 Anion gap measurement may be of limited value in the presence of any alkalosis, especially in a combined acid base disorder. . 66 Because ethnic data is not always readily available, this report includes an eGFR for both -Americans and non- Americans. The National Kidney Disease Education Program (NKDEP) does not endorse the use of the MDRD equation for patients that are not between the ages of 18 and 70, are , have extremes of body size, muscle mass, or nutritional status, or are non- or non-. According to the National Kidney Foundation, irrespective of diagnosis, the stage of the disease is based on the level of kidney function: Stage Description GFR(mL/min/1.73 m(2)) 1 Kidney damage with normal or decreased GFR 90 2 Kidney damage with mild decrease in GFR 60-89 3 Moderate decrease in GFR 30-59 4 Severe decrease in GFR 15-29 5 Kidney failure <15 (or dialysis) 67 CHOLESTEROL INTERPRETATION: Desirable: Less than 200 MG/DL Borderline-High Risk: 200-239 MG/DL High-Risk: 240 MG/DL and over 68 HDL INTERPRETATION: Undesirable: High Risk: Less than 40 MG/DL Desirable: Low Risk: Greater than 60 MG/DL 69 LDL INTERPRETATION: Low Risk Optimal Level: LDL Less than 100 MG/DL Near or Above Optimal: LDL 100-129 MG/DL Borderline High Risk: LDL 130-159 MG/DL High Risk: LDL 160-189 MG/DL Very High Risk: LDL Greater than 189 MG/DL 70 Anion gap measurement may be of limited value in the presence of any alkalosis, especially in a combined acid base disorder. . 71 A metabolite of Naproxen, O-desmethylnaproxen, has been shown to interfere with the [place] method for measuring total bilirubin. Samples from patients who have taken Naproxen have shown spurious elevation in total bilirubin levels. 72 Because ethnic data is not always readily available, this report includes an eGFR for both -Americans and non- Americans. The National Kidney Disease Education Program (NKDEP) does not endorse the use of the MDRD equation for patients that are not between the ages of 18 and 70, are , have extremes of body size, muscle mass, or nutritional status, or are non- or non-. According to the National Kidney Foundation, irrespective of diagnosis, the stage of the disease is based on the level of kidney function: Stage Description GFR(mL/min/1.73 m(2)) 1 Kidney damage with normal or decreased GFR 90 2 Kidney damage with mild decrease in GFR 60-89 3 Moderate decrease in GFR 30-59 4 Severe decrease in GFR 15-29 5 Kidney failure <15 (or dialysis) 73 ENTEROBACTERIACEAE 10^1-10,000 ORGANISMS/ML (FEW)^CCU Small quantity of enterobacteriaciae typically suggestive of fecal contamination. Suggest resubmission. Isolates will be saved for one week. Please call the Microbiology Laboratory if further identification and/or susceptibility testing is needed. 74 Anion gap measurement may be of limited value in the presence of any alkalosis, especially in a combined acid base disorder. . 75 A metabolite of Naproxen, O-desmethylnaproxen, has been shown to interfere with the Jendrassik-[place]and method for measuring total bilirubin. Samples from patients who have taken Naproxen have shown spurious elevation in total bilirubin levels. 76 Because ethnic data is not always readily available, this report includes an eGFR for both -Americans and non- Americans. The National Kidney Disease Education Program (NKDEP) does not endorse the use of the MDRD equation for patients that are not between the ages of 18 and 70, are , have extremes of body size, muscle mass, or nutritional status, or are non- or non-. According to the National Kidney Foundation, irrespective of diagnosis, the stage of the disease is based on the level of kidney function: Stage Description GFR(mL/min/1.73 m(2)) 1 Kidney damage with normal or decreased GFR 90 2 Kidney damage with mild decrease in GFR 60-89 3 Moderate decrease in GFR 30-59 4 Severe decrease in GFR 15-29 5 Kidney failure <15 (or dialysis) 77 CHOLESTEROL INTERPRETATION: Desirable: Less than 200 MG/DL Borderline-High Risk: 200-239 MG/DL High-Risk: 240 MG/DL and over 78 HDL INTERPRETATION: Undesirable: High Risk: Less than 40 MG/DL Desirable: Low Risk: Greater than 60 MG/DL 79 LDL INTERPRETATION: Low Risk Optimal Level: LDL Less than 100 MG/DL Near or Above Optimal: LDL 100-129 MG/DL Borderline High Risk: LDL 130-159 MG/DL High Risk: LDL 160-189 MG/DL Very High Risk: LDL Greater than 189 MG/DL 80 THERAPEUTIC TARGET FOR THE TREATMENT OF DIABETES MELLITUS PATIENTS IS <7% HBA1C, AND IN SELECTIVE PATIENTS <6.0%. PLEASE REFER TO [employer]ATION DIABETIC CARE GUIDELINES FOR FURTHER INFORMATION. 81 -- REFERENCE VALUE -- 25-HYDROXY D TOTAL (D2+D3) Optimum levels in the normal population are 25-80 Test Performed by: [facility] Med [facility] Pathology [address] [place] [id number] Perinatal Tech: Benny Pritchett III, M.D. 82 PATIENT MAY HAVE RESULTS PER DOCTOR'S AUTHORIZATION. Questions regarding this report should be directed to your doctor. 83 Anion gap measurement may be of limited value in the presence of any alkalosis, especially in a combined acid base disorder. . 84 Note change in reference range as of 04/22/08. The change was based on recommendations from the [place] [employer]. 85 Please note change in reference range effective 08 . 86 A metabolite of Naproxen, O-desmethylnaproxen, has been shown to interfere with the [place]rass[place] method for measuring total bilirubin. Samples from patients who have taken Naproxen have shown spurious elevation in total bilirubin levels. 87 Because ethnic data is not always readily available, this report includes an eGFR for both -Americans and non- Americans. The National Kidney Disease Education Program (NKDEP) does not endorse the use of the MDRD equation for patients that are not between the ages of 18 and 70, are , have extremes of body size, muscle mass, or nutritional status, or are non- or non-. According to the National Kidney Foundation, irrespective of diagnosis, the stage of the disease is based on the level of kidney function: Stage Description GFR(mL/min/1.73 m(2)) 1 Kidney damage with normal or decreased GFR 90 2 Kidney damage with mild decrease in GFR 60-89 3 Moderate decrease in GFR 30-59 4 Severe decrease in GFR 15-29 5 Kidney failure <15 (or dialysis) 88 CHOLESTEROL INTERPRETATION: Desirable: Less than 200 MG/DL Borderline-High Risk: 200-239 MG/DL High-Risk: 240 MG/DL and over 89 HDL INTERPRETATION: Undesirable: High Risk: Less than 40 MG/DL Desirable: Low Risk: Greater than 60 MG/DL 90 LDL INTERPRETATION: Low Risk Optimal Level: LDL Less than 100 MG/DL Near or Above Optimal: LDL 100-129 MG/DL Borderline High Risk: LDL 130-159 MG/DL High Risk: LDL 160-189 MG/DL Very High Risk: LDL Greater than 189 MG/DL 91 THERAPEUTIC TARGET FOR THE TREATMENT OF DIABETES MELLITUS PATIENTS IS <7% HBA1C, AND IN SELECTIVE PATIENTS <6.0%. PLEASE REFER TO [employer]ATION DIABETIC CARE GUIDELINES FOR FURTHER INFORMATION. 92 Anion gap measurement may be of limited value in the presence of any alkalosis, especially in a combined acid base disorder. . 93 Note change in reference range as of 04/22/08. The change was based on recommendations from the [place] [employer]. 94 Please note change in reference range effective 08 . 95 Because ethnic data is not always readily available, this report includes an eGFR for both -Americans and non- Americans. The National Kidney Disease Education Program (NKDEP) does not endorse the use of the MDRD equation for patients that are not between the ages of 18 and 70, are , have extremes of body size, muscle mass, or nutritional status, or are non- or non-. According to the National Kidney Foundation, irrespective of diagnosis, the stage of the disease is based on the level of kidney function: Stage Description GFR(mL/min/1.73 m(2)) 1 Kidney damage with normal or decreased GFR 90 2 Kidney damage with mild decrease in GFR 60-89 3 Moderate decrease in GFR 30-59 4 Severe decrease in GFR 15-29 5 Kidney failure <15 (or dialysis) 96 PLEASE NOTE NEW REFERENCE RANGES. 97 FASTING PATIENT MAY HAVE RESULTS PER DOCTOR'S AUTHORIZATION. Questions regarding this report should be directed to your doctor. 98 THERAPEUTIC TARGET FOR THE TREATMENT OF DIABETES MELLITUS PATIENTS IS <7% HBA1C, AND IN SELECTIVE PATIENTS <6.0%. PLEASE REFER TO [employer]ATION DIABETIC CARE GUIDELINES FOR FURTHER INFORMATION. 99 SDS 12/20/08 100 MARÍA VALUE=2.01 ( OF 08/08/07 Recommended INR for Patients on Oral Anticoagulants Prophylaxis 2.0 - 3.0 Treatment of thrombosis 2.0 - 3.0 Prevention of embolism 2.0 - 3.0 Prevention of embolism from prosthetic heart valves 2.5 - 3.5 101 Anion gap measurement may be of limited value in the presence of any alkalosis, especially in a combined acid base disorder. . 102 Note change in reference range as of 04/22/08. The change was based on recommendations from the [place] Diabetes [employer]. 103 Please note change in reference range effective 08 . 104 PATIENT MAY HAVE RESULTS PER DOCTOR'S AUTHORIZATION. Questions regarding this report should be directed to your doctor. FASTING 105 Anion gap measurement may be of limited value in the presence of any alkalosis, especially in a combined acid base disorder. . 106 Note change in reference range as of 04/22/08. The change was based on recommendations from the [place] [employer]. 107 Please note change in reference range effective 08 . 108 THERAPEUTIC TARGET FOR THE TREATMENT OF DIABETES MELLITUS PATIENTS IS <7% HBA1C, AND IN SELECTIVE PATIENTS <6.0%. PLEASE REFER TO [employer]ATION DIABETIC CARE GUIDELINES FOR FURTHER INFORMATION. 109 PATIENT MAY HAVE RESULTS PER DOCTOR'S AUTHORIZATION. Questions regarding this report should be directed to your doctor. 110 Anion gap measurement may be of limited value in the presence of any alkalosis, especially in a combined acid base disorder. . 111 Please note change in reference range effective 08 . 112 CHOLESTEROL INTERPRETATION: Desirable: Less than 200 MG/DL Borderline-High Risk: 200-239 MG/DL High-Risk: 240 MG/DL and over 113 HDL INTERPRETATION: Undesirable: High Risk: Less than 40 MG/DL Desirable: Low Risk: Greater than 60 MG/DL 114 LDL INTERPRETATION: Low Risk Optimal Level: LDL Less than 100 MG/DL Near or Above Optimal: LDL 100-129 MG/DL Borderline High Risk: LDL 130-159 MG/DL High Risk: LDL 160-189 MG/DL Very High Risk: LDL Greater than 189 MG/DL 115 THERAPEUTIC TARGET FOR THE TREATMENT OF DIABETES MELLITUS PATIENTS IS <7% HBA1C, AND IN SELECTIVE PATIENTS <6.0%. PLEASE REFER TO [employer]ATION DIABETIC CARE GUIDELINES FOR FURTHER INFORMATION. 116 [GROUP D ENTEROCOCCUS] >100^>100,000 ORGANISMS/ML^CCU GROUP D ENTEROCOCCUS 117 THERAPEUTIC TARGET FOR THE TREATMENT OF DIABETES MELLITUS PATIENTS IS <7% HBA1C, AND IN SELECTIVE PATIENTS <6.0%. PLEASE REFER TO [employer]IATION DIABETIC CARE GUIDELINES FOR FURTHER INFORMATION. 118 Anion gap measurement may be of limited value in the presence of any alkalosis, especially in a combined acid base disorder. . 119 THERAPEUTIC TARGET FOR THE TREATMENT OF DIABETES MELLITUS PATIENTS IS <7% HBA1C, AND IN SELECTIVE PATIENTS <6.0%. PLEASE REFER TO [employer]ATION DIABETIC CARE GUIDELINES FOR FURTHER INFORMATION. 120 FINAL: NO GROWTH DAY 2 (<1,000 CFU/mL) 121 ----- RUN DATE: 01/20/07 [facility] NMI LIVE PAGE 1 RUN TIME: 1455 Specimen Inquiry RUN USER: INTERFACE [id number] JOCELYN PRESTON 76/F <DIS IN 01/19> ([id number]) [id number] [facility] Micaela JEAN, Ba rry J. -- Specimen: [id number] SOUT Spec Date: 01/16/[address]: Todd white MD Spec Type: SURGICAL P Received: 01/17/07 Copies to: SPECIMEN L4-L5 DISC HISTORY PRE-OP DIAGNOSIS: Left L4-L5 disc herniation GROSS DESCRIPTION The specimen is received in formalin labelled Jocelny Preston, L4-5 Disc and consists of multiple, matta-boykin, soft tissue fragments measuring 1.3 x 1.0 x 0.4 cm. in aggregate submitted entirely in one cassette. DIAGNOSIS Intervertebral disc, L4-5, discectomy - Myxoid degeneration. Signed Electronically by: DLETA PADILLA MD 01/20/07 1456 -- -- DEPARTMENT OF PATHOLOGY, [address] [place] [address] [facility] Permit #[id number] Delta Padilla II, M.D. Director Ariel Vila M.D. D irector -- [facility] 01/16/07 123 PREADMISSION TESTING SAMPLES FOR BLOOD BANK WILL BE HELD FOR 14 DAYS FROM THE DATE OF COLLECTION *IF* THE FOLLOWING CRITERIA ARE MET: 1) THE PATIENT HAS *NOT* BEEN IN THE LAST 3 MONTHS. 2) THE PATIENT HAS *NOT* BEEN TRANSFUSED IN THE LAST 3 MONTHS. PREADMISSION TESTING SAMPLES WILL *NOT* BE HELD FOR 14 DAYS FROM PATIENTS WHO IN THE LAST 3 MONTHS: 1) HAVE BEEN 2) HAVE BEEN TRANSFUSED THESE PATIENTS *MUST* BE COLLECTED WITHIN 3 DAYS OF THE SURGERY DATE. 124 Anion gap measurement may be of limited value in the presence of any alkalosis, especially in a combined acid base disorder. . Procedures Date Code Description Status 12/04/2018 86821 Excision Tendon Sheath Ganglion /Or Joint Capsule Hand Completed Or Finger 12/04/2018 43674 Excision Tendon Sheath Ganglion /Or Joint Capsule Hand Completed Or Finger 11/27/2018 84584 EKG Tracing & Interpretation Completed 09/19/2018 96639 Inject Tendon Sheath Or Ligament Aponeurosis Eg Completed Plantar Fascia 09/08/2018 [id number] Mammogram Completed 09/04/2018 [id number] Diabetic Retinal Eye Exam Completed 02/13/2018 [id number] Bone Mineral Density Test Completed 01/07/2018 [id number] Diabetic Retinal Eye Exam Completed 09/04/2017 [id number] Mammogram Completed 09/25/2016 [id number] Diabetic Retinal Eye Exam Completed 08/14/2016 70071 Inc & Removal Foreign Body Subcutaneous Tissues Completed 08/14/2016 45736 Inc & Removal Foreign Body Subcutaneous Tissues Completed 07/31/2016 [id number] Mammogram Completed 07/31/2016 [id number] Bone Mineral Density Test Completed 11/29/2015 73428 Carpal Tunnel Release Completed 11/29/2015 19709 Carpal Tunnel Release Completed 11/29/2015 96241 Remove Sutures Under Anesthesia Other Surgeon Completed 11/22/2015 06699 Nerve Conduction 03-04 Studies Completed 10/17/2015 17447 Holter Monitoring 24 HR New Completed 10/13/2015 01389 Holter Monitoring 24 HR New Completed 09/23/2015 [id number] Diabetic Retinal Eye Exam Completed 07/25/2015 [id number] Mammogram Completed 06/13/2015 80973 Inject/Drain Joint/Bursa Major W/O US Completed 09/21/2014 [id number] Diabetic Retinal Eye Exam Completed 06/04/2014 389409538 Bone Mineral Density Test Completed 06/04/2014 [id number] Mammogram Completed 09/16/2013 [id number] Diabetic Retinal Eye Exam Completed 08/19/2012 [id number] Diabetic Retinal Eye Exam Completed 05/14/2012 [id number] Mammogram Completed 05/14/2012 [id number] Bone Mineral Density Test Completed 10/10/2011 86232 Rad Exam; Tib-Fib Completed 05/15/2011 96875 Rad Exam; Ankle Comp Completed 05/11/2011 24672 EKG Tracing & Interpretation Completed 05/01/2011 60746 Rad Exam; Ankle Comp Completed 04/24/2011 63631 closed treatment of medial malleolus fx w/o Completed maniplulation 01/11/2011 84033 Xray Knee 3 Views Completed 11/24/2009 [id number] Mammogram Completed 11/24/2009 [id number] Bone Mineral Density Test Completed 11/21/2009 35847 Holter Monitor Interpretation Completed 04/25/2009 21880 EKG Tracing & Interpretation Completed 01/16/2007 01128 Laminotomy: Reexploration Single Interspace Lumbar Completed 02/07/2005 [id number] Colonoscopy Completed Encounters Type Date Location Provider Dx Diagnosis Office Visit 11/27/2018 [facility] Internal Julisa Marker, J20.9 Acute bronchitis, 4:00p Medicine - [place] RPA-C unspecified Rd J34.89 Other specified disorders of nose and nasal sinuses I49.9 Cardiac arrhythmia, unspecified Office Visit 11/21/2018 11:15a Orthopedic Luis Manuel M65.312 Trigger thumb, Services Of Teodoro Castro MD left thumb AT [place] Office Visit 11/19/2018 10:00a [facility] Internal Bandar Mcgowan J20.9 Acute bronchitis, Damari Mccarthy M.D. unspecified [place] E11.9 Type 2 diabetes mellitus without complications Office Visit 10/07/2018 3:40p [facility] Internal Bandar Mcgowan E11.9 Type 2 diabetes Damari Mccarthy M.D. mellitus without [place] complications M79.621 Pain in right upper arm W00.0xxD Fall on same level due to ice and snow, subsequent encounter Office Visit 09/19/2018 10:30a Orthopedic Luis Manuel Castro M65.312 Trigger thumb, Services Of Teodoro JEAN left thumb AT [place] Office Visit 09/15/2018 2:00p ENT Services Of [place] J31.0 Chronic C.M.A. AT [place] rhinitis [place] H90.5 Unspecified sensorineural hearing loss Office Visit 09/10/2018 11:40a [facility] Internal Bandar Mcgowan E11.9 Type 2 diabetes Damari Mccarthy M.D. mellitus without [place] complications M85.89 Oth disrd of bone density and structure, multiple sites W00.0xxD Fall on same level due to ice and snow, subsequent encounter Office Visit 08/11/2018 3:40p [facility] Internal Nora Leigh, N77.1 Vaginitis , vulvitis Medicine N.P. and vulvovaginitis in dis classd elswhr Office Visit 05/30/2018 10:20a [facility] Internal Bandar Mcgowan E11.9 Type 2 diabetes Damari Mccarthy M.D. 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 junction syndrome [place] [Tietze] Office Visit 12/31/2017 2:00p [facility] Internal Bandar Mcgowan J06.9 Acute upper Damari Mccarthy M.D. respiratory [place] infection, unspecified Office Visit 10/14/2017 3:20p [facility] Dermatology Harlan Lowntzer, L21.8 Other seborrheic MD dermatitis L65.8 Other specified nonscarring hair loss Office Visit 10/10/2017 10:00a [facility] Internal Bandar Mcgowan L65.9 Nonscarring hair Damari Mccarthy M.D. loss, unspecified [place] Office Visit 09/11/2017 2:40p [facility] Internal Bandar Mcgowan M54.5 Low back pain Damari Mccarthy M.D. [place] E11.9 Type 2 diabetes mellitus without complications Office Visit 06/06/2017 9:00a [facility] Internal Bandar Mcgowan E11.9 Type 2 diabetes Damari Mccarthy M.D. mellitus without [place] complications Z13.220 Encounter for screening for lipoid disorders Office Visit 12/05/2016 [facility] Jessica Mcgowan E11.9 Type 2 diabetes 11:20a Damari Mccarthy M.D. mellitus without [place] complications Office Visit 09/06/2016 [facility] Jessica Mcgowan E11.9 Type 2 diabetes 9:20a Damari Mccarthy M.D. mellitus without [place] complications Office Visit 07/25/2016 [facility] Jessica Mcgowan E11.9 Type 2 diabetes 3:40p Damari Mccarthy M.D. mellitus without [place] complications Office Visit 07/19/2016 [facility] Internal Bandar Mcgowan J06.9 Acute upper 2:40p Damari Mccarthy M.D. respiratory [place] infection, unspecified Office Visit 06/20/2016 Orthopedic Jannette M79.5 Residual foreign 8:20a Services Of [place] Willard body in soft tissue C.M.A. Office Visit 05/30/2016 [facility] Jessica Mcgowan E11.9 Type 2 diabetes 11:20a Damari Mccarthy M.D. 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 syndrome, right [place] upper limb M96.1 Postlaminectomy syndrome, not elsewhere classified Office Visit 10/05/2015 2:40p [facility] Jessica Mcgowan R00.2 Palpitations Damari Mccarthy M.D. 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 osteoarthritis, right knee Office Visit 03/01/2015 [facility] Jessica Mcgowan 250.00 Diabetes Mellitus 9:40a Damari Mccarthy M.D. 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 Examination 618.01 Cystocele, Midline 627.3 Atrophic Vaginitis Postmenopausal Office Visit 10/18/2014 2:15p Orthopedic Jannette 816.00 FX One Or More Services Of [place] Willard Phalanx Or C.M.A. Phalanges Closed Unspec Office Visit 05/31/2014 11:00a [facility] Internal Bandar E. 250.00 Diabetes Damari Mccarthy M.D. Mellitus W/O Compl Type II Or Unspec Controlled 733.90 Bone & Cartilage Disorder Unspec V76.10 Screening For Malignant Neoplasm Breast Office Visit 01/13/2014 Neurosurgery Todd Almaraz 722.83 Postlaminectomy 2:40p Services Of Teodoro Hinojosa M.D. Syndrome Lumbar AT [facility] 721.0 Spondylosis Cervical W/O Myelopathy Office Visit 11/17/2013 9:20a [facility] Internal Bandar Mcgowan 250.00 Diabetes Mellitus Damari Mccarthy M.D. W/O Compl Type II Or Unspec Controlled 780.79 Malaise And Fatigue Other Office Visit 02/10/2013 2:00p [facility] Internal Bandar Mcgowan 250.00 Diabetes Mellitus Damari Mccarthy M.D. W/O Compl Type II Or Unspec Controlled 785.9 Cardiovascular Symptoms Other Office Visit 05/01/2012 3:00p [facility] Internal Bandar Mcgowan 250.00 Diabetes Mellitus Damari Mccarthy M.D. W/O Compl Type II Or Unspec Controlled 723.1 Cervicalgia 733.90 Bone & Cartilage Disorder Unspec V04.81 Need For Prophylactic Vaccination & Inoculation/Influenza Office Visit 12/05/2011 10:40a Neurosurgery Todd Almaraz 721.0 Spondylosis Services Of [facility] AT [place] Hinojosa Cervical W/O [place] Myelopathy 721.3 Spondylosis Lumbar W/O Myelopathy Office Visit 10/29/2011 10:00a [facility] Internal Bandar E. 250.00 Diabetes Mellitus Damari Mccarthy M.D. W/O Compl Type II Or Unspec Controlled Office Visit 10/10/2011 3:00p Orthopedic Terrence 924.10 Contusion Lower Services Of [place] Castaneda Leg C.M.A. 924.5 Contusion Lower Limb Part Unspec Office Visit 07/17/2011 2:00p DO Not Use Manager Of Patient Bandar E. V72.81 Examination AT Dennise Mccarthy M.D. Preoperative Cardiovascular 250.00 Diabetes Mellitus W/O Compl Type II Or Unspec Controlled 733.90 Bone & Cartilage Disorder Unspec 366.9 Cataract Unspec Office Visit 05/11/2011 2:45p DO Not Use Manager Of Patient Jennyfer Catina, 250.00 Diabetes Mellitus AT [facility] W/O Compl Type II Or Unspec Controlled V72.84 Examination Preoperative Unspec v04.81 Need For Prophylactic Vaccination & Inoculation/Influenza Office Visit 04/27/2011 10:40a DO Not Use Manager Of Patient Bandar E. 250.00 Diabetes Mellitus AT Dennise Mccarthy M.D. W/O Compl Type II Or Unspec Controlled Office Visit 03/19/2011 3:30p DO Not Use Manager Of Patient Jennyfer V72.84 Examination AT [facility], [facility] Preoperative Unspec 250.00 Diabetes Mellitus W/O Compl Type II Or Unspec Controlled 733.90 Bone & Cartilage Disorder Unspec Office Visit 01/11/2011 Orthopedic Terrence 715.96 Osteoarthrosis 8:30a Services Of Edinson Castaneda Unspec Genlzd Or C.M.A. Localized Lower Leg Office Visit 10/10/2010 DO Not Use Manager Of Patient Bandar E. V70.0 Examination General 2:20p AT Dennise Mccarthy M.D. Medical Routine AT [facility] 250.00 Diabetes Mellitus W/O Compl Type II Or Unspec Controlled 733.90 Bone & Cartilage Disorder Unspec 787.20 Dysphagia, Unspecified Office Visit 11/15/2009 2:20p DO Not Use Manager Of Patient Bandar E. 250.00 Diabetes Mellitus AT Dennise Mccarthy M.D. W/O Compl Type II Or Unspec Controlled 733.90 Bone & Cartilage Disorder Unspec 729.5 Pain In Limb 785.1 Palpitations Office Visit 04/25/2009 11:00a Nas Med Bandar E. 250.00 Diabetes Mellitus Assoc AT Edinson Mccarthy W/O Compl Type II [facility] Or Unspec Controlled 780.2 Syncope & Collapse Office Visit 02/28/2009 10:00a [facility] Bandar E. 599.0 UTI Urinary Tract Assoc AT Edinson Mccarthy Infection Site [facility] Not Spec Office Visit 10/18/2008 10:15a [facility] Bandar E. 733.90 Bone & Cartilage Assoc AT Edinson Mccarthy Disorder Unspec [facility] 250.00 Diabetes Mellitus W/O Compl Type II Or Unspec Controlled V06.5 Tetanus Diphtheria (DT) Office Visit 10/11/2008 1:00p Neurosurgery Todd Almaraz 724.3 Sciatica Services Of Teodoro Hinojosa M.D. Office Visit 09/16/2008 11:00a Neurosurgery Todd Almaraz 724.3 Sciatica Services Of Teodoro Hinojosa M.D. Office Visit 04/14/2008 10:30a [facility] Bandar E. 250.00 Diabetes AT [facility] Edinson Mccarthy Mellitus W/O Compl Type II Or Unspec Controlled 719.40 Pain Joint Site Unspec Office Visit 01/08/2008 2:45p [facility] Bandar E. 454.1 Varicose Veins Assoc AT Edinson Mccarthy Lower Extrem W/ [facility] Inflammation Office Visit 10/15/2007 10:30a [facility] Bandar E. 250.00 Diabetes Mellitus Assoc AT Edinson Mccarthy W/O Compl Type II [facility] Or Unspec Controlled 724.2 Lumbago Office Visit 08/22/2007 9:30a [facility] Bandar E. 461.9 Sinusitis Acute AT Luisa Mccarthy M.D. [facility] [place] 250.00 Diabetes Mellitus W/O Compl Type II Or Unspec Controlled Office Visit 07/28/2007 Neurosurgery Todd Almaraz 722.10 Intervertebral Disc 11:00a Services Of Teodoro Hinojosa M.D. Displacement Lumbar W/O Myelopathy Office Visit 04/09/2007 [facility] Bandar E. 250.00 Diabetes Mellitus 10:30a AT [facility] Edinson Mccarthy W/O Compl Type II Or Unspec Controlled V03.82 Streptococcus Pneumoniae Vaccination Spec Other Office Visit 04/02/2007 Neurosurgery Todd Almaraz V45.89 Postsurgical Status 10:30a Services Of Teodoro Hinojosa M.D. Other Joe Office Visit 12/18/2006 Neurosurgery Todd Almaraz 722.10 Intervertebral Disc 4:00p Services Of Teodoro Hinojosa M.D. Displacement Lumbar Joe W/O Myelopathy Office Visit 11/20/2006 Neurosurgery Todd Almaraz 722.10 Intervertebral Disc 10:15a Services Of [facility] AT Edinson Hinojosa Displacement Lumbar [place] W/O Myelopathy Office Visit 11/13/2006 Neurosurgery Todd Almaraz 724.2 Lumbago 10:30a Services Of [facility] AT Edinson Hinojosa 724.3 Sciatica Office Visit 10/02/2006 11:30a Neurosurgery Todd Almaraz 723.1 Cervicalgia Services Of [facility] AT Edinson Hinojosa 724.2 Lumbago Plan of Treatment Future Appointment(s):06/18/2019 2:20 pm - Bandar Mccarthy M.D. at [facility] Internal Medicine - [id number]/31/2019 - Luis Manuel Castro, [id number] Trigger thumb, left thumbFollow up:Follow up: As [id number] Ganglion, left hand
[2019-02-09 14:07] VITALS: BP 138/68
--- NOTE | 2019-02-09 14:35 | UC ---
Hand/Wrist HPI - HPI Summary HPI Summary: 88 yo female presents with LEFT pinky injury about 1 hour [employer]. She tells me that she was reaching into purse to grab something when she bent her left pinky awkwardly. Since that time has had some pain and bruising in the PIP and she cannot bend at the PIP. She reports that this area has been "stuck" in the past and would "clunk" while trying to bend it, but now she cannot even bend it unless she grabs it with the other hand and manually bends the digit. She is right handed. - History Of Current Complaint Chief Complaint: UCUpperExtremity Stated Complaint: INJURY/LTPINKY Time Seen by Provider: 02/09/19 14:34 Hx Obtained From: Patient Onset/Duration: Sudden Onset Severity Initially: Moderate Severity Currently: Moderate Pain Intensity: 5 Pain Scale Used: 0-10 Numeric - Allergies/Home Medications Allergies/Adverse Reactions: Allergies Allergy/AdvReac Type Severity Reaction Status Date / Time No Known Allergies Allergy Verified 02/09/19 14:07 Home Medications: Home Medications Collagen Powder Supplement 02/09/19 [History] PMH/Surg Hx/FS Hx/Imm Hx - Additional Past Medical History Additional PMH: Osteoarthritis - Surgical History Surgical History: Yes Surgery Procedure, Year, and Place: Tonsillectomy. 1960 Tubal Ligation, [facility]. 1978 Partial Hysterectomy, [facility]. 2005 & 2006 L4 L5 HEMILAMENOTOMY x 2, [facility]. 2009 LEFT LEG VARICOSE VEIN SURGERY, [facility]. cataracts. - Family History Known Family History: Positive: Cardiac Disease - Social History Occupation: Retired Lives: With Family Alcohol Use: Rare Substance Use Type: None Smoking Status (MU): Never Smoked Tobacco - Immunization History Most Recent Influenza Vaccination: 04/2017 Most Recent Pneumonia Vaccination: 2014 Review of Systems All Other Systems Reviewed And Are Negative: Yes Constitutional: Positive: Negative Skin: Positive: Negative Respiratory: Positive: Negative Cardiovascular: Positive: Negative Neurovascular: Positive: Negative Musculoskeletal: Positive: Other: - Left pinky pain Neurological: Positive: Negative Psychological: Positive: Negative Physical Exam - Summary Physical Exam Summary: GENERAL: NAD. WDWN. No pain distress. SKIN: No rashes, sores, lesions, or open wounds. CHEST: No accessory muscle use. Breathing comfortably and in no distress. CV: Pulses intact radial and ulnar. Cap refill <2seconds MSK: LEFT 5th digit. Mild TTP and ecchymosis at the PIP. Inability to flex at the PIP without manually pressure. NEURO: Alert. Sensations intact hand and all fingers. PSYCH: Age appropriate behavior. Triage Information Reviewed: Yes Vital Signs: Initial Vital Signs Temp 97.3 F 02/09/19 14:03 Pulse 89 02/09/19 14:03 Resp 16 02/09/19 14:03 BP 138/68 02/09/19 14:03 Pulse Ox 100 02/09/19 14:03 Vital Signs Reviewed: Yes Hand/Wrist Course/Dx - Course Course Of Treatment: XR: FINDINGS: There is slight deformity with extension at the proximal interphalangeal joint and flexion at the distal interphalangeal joint. There is an old fracture fragment at the dorsal base of the middle phalanx. There are calcifications adjacent to the distal aspect of the middle phalanx. There is also a small bony density adjacent to the medial base of the proximal phalanx possibly representing a small avulsion fracture fragment age indeterminate. Discussed results with pt. Suspect that this small avulsion fracture is acute given her recent injury and new onset inability to flex at PIP. She was placed in a finger splint and advised to rest, ice, and follow up with Orthopedics for further evaluation. - Differential Dx/Diagnosis Provider Diagnosis: Nondisplaced fracture of phalanx of finger Discharge - Sign-Out/Discharge Documenting (check all that apply): Patient Departure All imaging exams completed and their final reports reviewed: Yes - Discharge Plan Condition: Stable Disposition: HOME Patient Education Materials: Finger Fracture (ED) Referrals: Bandar Mccarthy MD [Primary Care Provider] - Luis Manuel Castro MD [Medical Doctor] - 4 Days Additional Instructions: If you develop a fever, shortness of breath, chest pain, new or worsening symptoms - please call your PCP or go to the ED immediately. 1) Apply ice to your finger to decrease pain and swelling 2) Use the finger splint as much as possible 3) I recommend that you call Dr. Castro to schedule an appointment for later this week for a recheck of your finger. - Billing Disposition and Condition Condition: STABLE Disposition: Home
== END 2019-02-09 15:06 | disposition home or self-care (01) ==
LOC: UCEAST 13:57
DX: S62.647A Nondisplaced fracture of proximal phalanx of left little finger, initial encounter for closed fracture (principal); W22.8XXA Striking against or struck by other objects, initial encounter; Y92.9 Unspecified place or not applicable
CPT/HCPCS: 73140; 99212; G0463